=== PATIENT | female | born 1950 | race Caucasian/White ===

== ENCOUNTER 2019-05-11 11:25 | Inpatient (IN) | payer OTHER ==
[~2019-05-11] VITALS: Ht 157.5 cm; Wt 46.1 kg
[~2019-05-11 11:25] MED LIST: ABILIFY10 MG PO; ABREVA2 GM TP; ARICEPT; CALCIUM 500 +1 EAC5 PO; DICLOFENAC SODI25 MG PO; HYDROCODONE-AP1 EAC6 PO; INDOMETHACIN 2525 MG PO; NABUMETONE 750750 M1 PO; PAXIL; PAXIL10 MG PO; PHENERGAN 25 MG25 M1 PO; TRAMADOL 50 MG50 MG PO; TRAZODONE HCL50 MG PO; VYVANSE70 MG; VYVANSE70 MG PO; XANAX1 MG PO; ZOCOR
[2019-05-11 11:30] VITALS: BP 127/59
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
[2019-05-11 14:42] LABS: TSH 0.134 uIU/mL (0.358-3.740)
[2019-05-11 19:30] VITALS: BP 141/73
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
--- NOTE | 2019-05-12 05:59 | NUR ---
SLEPT 7.4 HOURS
[2019-05-12 07:08] LABS: HIV ANTIBODY Non Reactive (Non Reactive)
[2019-05-12 08:42] VITALS: BP 149/69
[2019-05-12 09:14] VITALS: BP 149/69
--- NOTE | 2019-05-12 12:09 | NUR ---
0645 RESUMMED CARE FROM OVERNIGHT SHIFT, PATIENT IN BED NOT WANTING TO GET UP DUE TO HEADACHE. PATIENT ATE BREAKFAST AND TOOK MEDICATION WITHOUT INCIDENCE. PATIENT NOT HAVE ANY GOALS SET FOR HERSELF TODAY, PATIENT DID GO TO GROUP AND WAS ENCOURAGE TO PARTICIPATE. PATIENT'S AFFECT IS FLAT, QUIET COOPERATIVE WILL CONTINUE TO MONITOR PATIENT
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
[2019-05-12 19:15] VITALS: BP 126/80
[2019-05-12 20:09] LABS: SYPHILIS AB Non Reactive (Non Reactive)
--- NOTE | 2019-05-13 01:28 | NUR ---
ASSUMED CARE OF THIS PATIENT AT [address] [employer]. SHE HAS BEEN IN ROOM THE ENTIRE SHIFT. COOPERATIVE WITH ASSESSMENT AND MEDS. HAS REQUESTED NO PRN'S THIS SHIFT.AFFECT BLUNTED, MOOD DEPRESSED. NO C/O. NO APPARENT DISTRESS. WILL CONTINUE TO MONITOR
[2019-05-13 07:12] VITALS: BP 144/87
[2019-05-13 07:34] LABS: HEMATOCRIT 47.7 % (37.0-47.0); HEMOGLOBIN 15.8 gm/dL (12.0-15.0); MCHC 33.1 g/dL (28.0-37.0); MCV 90.5 fL (80.0-100.0); PLATELET COUNT 413 thou/uL (150-400); RBC 5.27 mil/uL (4.20-5.00); RDW 14.7 % (10.5-14.5); WBC 6.9 thou/uL (4.0-11.0)
[2019-05-13 07:55] LABS: ALBUMIN 3.7 g/dL (3.4-5.0); CALCIUM 11.1 mg/dL (8.5-10.1); CREATININE 0.8 mg/dL (0.6-1.0); MAGNESIUM 1.8 mg/dL (1.8-2.4); PHOSPHORUS 4.7 mg/dL (2.5-4.9); POTASSIUM 4.1 mmol/L (3.5-5.1); TOTAL BILIRUBIN 0.3 mg/dL (<0.1-1.0)
[2019-05-13 08:08] LABS: FOLIC ACID 18.7 ng/mL (8.6-58.9); TSH 0.13 uIU/mL (0.358-3.740)
--- NOTE | 2019-05-13 10:33 | NUR ---
Lying supine in recliner without s/o distress. Rolled back to room for assessment. Awakens easily but unable to answer questions. No speech or actions suggestive of SI/HI. No response to orientation questions but does ask to urinate and agrees to walk to dining room. Calm and compliant with meds. Ate about 25% of breakfast independently. Breath sounds clear t/o, bilaterally equal. Irregular HR auscultated and irregular radial pulse. Color pink with brisk capillary refill and palpable peripheral pulses. Trace amount edema in lower extremities. Concentrated yellow urine per toilet X 2 voids this AM. Active bowel sounds over soft, flat abdomen. Up ambulating with steady gait with very little vocalizations. Laid down in bed to rest about 1030 without s/o distress.
[2019-05-13 11:14] LABS: ABSOLUTE NEUTROPHILS 3.3 thou/uL (1.4-8.2); PLATELET ESTIMATE NORMAL
--- NOTE | 2019-05-13 13:37 | NUR ---
0745 Lying supine in bed without s/o distress. Alert and orientated X4. Denies SI/HI. Reluctantly cooperative with assessment. States she is tired and wants to sleep. Breath sounds clear t/o, bilaterally equal. Reg HR auscultated. Color pink with brisk capillary refill and palpable peripheral pulses. Independent with voiding. Active bowel sounds over soft, flat abdomen. Ambulates to day room with regular, steady gait. 0930 Ate breakfast and then went back to bed. States she has a headache, 4-5/10. Took Tylenol and AM meds without difficulty. No s/o distress. 1100 States PAUL decreased, now a 1-2/10. In day room with peers without s/o distress. 1345 Dr. Tolbert here assessing pt. 22 g jelco placed per L wrist per order, NS hung and infusing at 250cc/hr d/t elevated Calcium. Pt. now sleeping in recliner without s/o distress.
--- NOTE | 2019-05-13 13:44 | EKG ---
[facility] [place] [address] ELECTROCARDIOGRAM REPORT Name: MICHELLE KENNEDY Room #: [facility] ADM IN M.R.#: [id number] Admission: 05/11/19 Attend Phys: Castillo Mata DO Discharge: Date of : 46 Report #: [id number] THIS REPORT FOR: cc: FAM - No family physician/PCP FAM - No family physician/PCP Markus Alfred MD ~ THIS REPORT FOR: //name// [facility] Test Date: 2019-05-13 Test Time: 08:59:11 Pat Name: MICHELLE KENNEDY Department: Room: [facility] Gender: F Quality Control Engineer: Kita TRINIDAD : 1950 Requested By: Yoly Merrill Order Number: [id number] MD: Markus Alfred Measurements Intervals Albers Rate: 81 P: 64 AK: 134 QRS: 18 QRSD: 102 T: 39 QT: 378 QTc: 439 Interpretive Statements Sinus rhythm Probable left atrial enlargement No previous ECG available for comparison Electronically Signed On 05-13-2019 13:43:27 TITLE I ASSISTANT by Markus Alfred [email or web address] <ELECTRONICALLY SIGNED> By: Markus Alfred MD 05/13/19 1343 [id number] Markus Alfred MD /EPI
[2019-05-13 19:35] LABS: CALCIUM 9.8 mg/dL (8.5-10.1)
[2019-05-13 21:01] VITALS: BP 142/77
--- NOTE | 2019-05-14 04:18 | NUR ---
Assumed care of pt @ 1900. Pt calm et cooperative with pleasant misdemeanor this shift. Took medications whole without difficulty. Ambulates the halls ad sandeep with steady gait. VSWNL. Health assessment with no abnormalities at present time. Socialized with peers in dayroom this evening. Pt denies SI/HI at present time. Currently resting in bed with eyes closed. Will continue to monitor per protocol.
[2019-05-14 07:03] LABS: CALCIUM 9.3 mg/dL (8.5-10.1); CREATININE 0.8 mg/dL (0.6-1.0); MAGNESIUM 1.6 mg/dL (1.8-2.4); PHOSPHORUS 3.8 mg/dL (2.5-4.9); POTASSIUM 3.9 mmol/L (3.5-5.1)
[2019-05-14 07:35] VITALS: BP 121/61
[2019-05-14 10:34] VITALS: BP 121/61
[2019-05-14 12:10] VITALS: BP 121/64
--- NOTE | 2019-05-14 14:05 | NUR ---
1405 RESUMMED CARE FROM OVERNIGHT SHIFT THIS AM, PATIENT IN DAY ROOM TALKING WITH OTHER PATIENTS. PATIENT ATE BREAKFAST TOOK HER MEDICATION WITHOUT INCIDENCE. PATIENT TOOK A SHOWER AND PARTICPATED IN GROUPS, PATIENT DENIES ANY SI/HI OR AH AT PRESENT. PATIENT WAS ANXIOUS THIS MORNING CALLING DAUGHTER ABOUT HER MISSING EYE GLASSES. PATIENT COOPERATIVE AND REDIRECTABLE, WILL CONTINUEE TO MONITOR PATIENT FOR SAFETY AND BEHAVIORS.
--- NOTE | 2019-05-14 17:27 | NUR ---
1500 Ambulated to room with steady gait, no s/o distress. Alert and orientated to person. States she is in [facility] when asked for location. Disorientated to time and situation. Denies SI/HI. States she feels much better than yesterday. Breath sounds clear t/o, bilaterally equal. Reg HR auscultated. Color pink with brisk capillary refill and palpable peripheral pulses +1/+4. Voiding independently. Active bowel sounds over soft, flat abdomen. 0.5cm white plaque noted in L posterior throat with erythema over throat. When asked she stated it was slightly painful and then requested her toenails be clipped. Sample Shoe Inspector And Reworker here assessing pt. When finished clipping toenails she stated that her R knee was hurting 4-5/10 and stated that it started prior to admission. Tylenol given which resolved pain. Currently sitting in day room eating dinner with peers and requesting ice cream for desert.
[2019-05-14 20:16] VITALS: BP 128/74
--- NOTE | 2019-05-15 05:20 | NUR ---
ASSUMED CARE OF THIS PATIENT AT 1900 FOR SKIN WASHER. SPENT MUCH OF THE EVENING INTERACTING WITH PEERS. DISORIENTED TO TIME AND SITUATION. PLEASANT AND COOPERATIVE WITH ASSESSMENT PROCESS AND MEDICATIONS. NO APPARENT DISTRESS. NO C/O. WILL CONTINUE TO MONITOR
--- NOTE | 2019-05-15 07:24 | NUR ---
Nutrition: Received consult for malnutrition. Pt recently assessed on 05/12, prior to the weekend. RD provided nutrition education on tips to support healthy need for weight gain and multiple nutrition interventions added. Pt has been eating extremely well. Calculated meal average = 85% per last 11 recorded meals. Eating 100% of 1-2 daily snacks as well, plus 50-100% of daily Ensure Enlive supplements which adds 350 kcals, 20 g protein/day. Energy dense source of kcals with peanut butter added to daily breakfast as well. Provider notes state significant malnutrition, RD would likely agree if pt found to have severe muscle/fat wasting. Current interventions working well. Next RD f/up planned again midweek on 05/17 w/ RD presence at [facility] team meeting.
[2019-05-15 08:43] VITALS: BP 93/66
[2019-05-15 11:10] LABS: THYROID PEROXIDASE AB 8 IU/mL (0-34)
--- NOTE | 2019-05-15 12:12 | HC ---
[facility] [place] [address] CONSULTATION Name: MICHELLE KENNEDY Room #: 520B-B ADM IN M.R.#: [id number] Admission: 05/11/19 Attend Phys: Castillo Mata, Discharge: Date of : 46 Report #: [id number] THIS REPORT FOR: cc: LESLIE - Ele family physician/PCP LESLIE - Ele family physician/PCP Em Merlos MD ~ CC: Castillo Mata [facility] physician/PCP DATE OF SERVICE: 05/14/2019 ENDOCRINE CONSULTATION NOTE CONSULTING PHYSICIAN: Dr. Tolbert. REASON FOR CONSULTATION: Hyperthyroidism, hypercalcemia. HISTORY OF PRESENT ILLNESS: This is a 68-year-old female patient whose medical background is noted for depression, substance abuse and anxiety in addition to COPD and GERD. The patient was admitted a few days ago out of concern over being a danger to herself and having expressed some suicidal ideation. Shortly after her presentation, the patient was evaluated with laboratory testing that revealed evidence of hypercalcemia as well as thyroid function abnormalities. When questioned further, the patient explained that she had been found to have thyroid abnormalities for several years and that she has been on active therapy at some point, but not in years. Unfortunately, she was unable to recall details about this medical history and was unable to recall the name of the medicine she was on, but whatever that was she has not been on it for a few years at least. Lately, she has felt increasingly fatigued, tired, depressed, and has lost 20 pounds in conjunction with poor appetite. She does not have major difficulties with palpitations, tremors, heat intolerance, sweating, frequent bowel movements or major skin or hair changes. She has not appreciated anterior neck fullness, discomfort, or compressive symptoms. She does not believe that she had ever undergone a thyroid surgery or radioactive iodine treatment. The patient does not recall having been told in the past that she had a calcium disorder and has not had difficulties with kidney stones, vertebral or hip fractures, pancreatitis, but she certainly has been dealing with worsening depression and difficulties maintaining mental clarity and focus. REVIEW OF SYSTEMS: CONSTITUTIONAL: Fatigue, tiredness, weight loss, poor appetite. No fever or chills. HEENT: Negative for sore throat, sinus pain, sinus congestion, ear drainage. PULMONARY: Occasional shortness of breath and cough and hemoptysis. [address] [address] CONSULTATION Name: MICHELLE KENNEDY Room #: 520B-B ADM IN M.R.#: [id number] Admission: 05/11/19 Attend Phys: Castillo Mata DO Discharge: Date of : 46 Report #: [id number] CARDIAC: Occasional lightheadedness, dizziness, but not leg edema, chest pain or palpitations. GASTROINTESTINAL: Noted for occasional abdominal discomfort and nausea, but not vomiting. NEUROLOGY: Negative for loss of consciousness, headaches or seizure activity. SKIN: Negative for rash, ulcers, discoloration or other major abnormalities. PSYCHIATRIC: Noted for mention of suicidal ideation, depression, poor focus. Otherwise, review of systems noncontributory other than those mentioned in HPI. PAST MEDICAL HISTORY: Noted for GERD, polysubstance abuse, osteoarthritis, history of pulmonary nodules, COPD, thyroid dysfunction. OUTPATIENT MEDICATIONS: As of late none. ALLERGIES: SULFA. FAMILY HISTORY: Noncontributory. SOCIAL HISTORY: The patient smokes half pack per day. Denies use of alcohol. Uses methamphetamine occasionally. PHYSICAL EXAMINATION: GENERAL: female patient who is not in apparent pain or distress. She appears cachectic. VITAL SIGNS: Blood pressure is 121/64 mmHg, heart rate is 62 beats per minute, respirations 17 per minute, temperature 36.2 degrees. CONSTITUTIONAL: The patient appears cachectic. She does not appear to be in pain or distress. HEENT: Anicteric sclerae. Intact extraocular motions. NECK: Supple, without JVD, carotid bruits or lymphadenopathy. I do not appreciate thyromegaly. CHEST: Noted for moderate air entry with scattered rales and rhonchi. HEART: Regular rate and rhythm without murmurs or gallops. ABDOMEN: Soft and lax without tenderness or organomegaly. She has active bowel sounds. EXTREMITIES: Lower extremity exam is negative for ankle edema. The patient has good pedal pulses bilaterally. NEUROLOGIC: Awake, alert and oriented to time, place and person. The remainder of her examination was largely nonfocal. PSYCH: The patient was pleasant and appropriate and answers my questions in full and was cooperative with an apparent normal mood and affect. LABORATORY RESULTS: Sodium 138, potassium 3.9, chloride 102, CO2 of 31, anion gap 5, BUN 26, creatinine 0.8, glucose 100, AST 11, total bilirubin 0.3, calcium 9.3. It was 11.1 and after hydration, went down to 9.8 on the same day yesterday and today is at 9.3, phosphorus 3.8, magnesium 1.6, alkaline [facility] [address] [place] [address] CONSULTATION Name: MICHELLE KENNEDY Room #: 520B-B ADM IN M.R.#: [id number] Admission: 05/11/19 Attend Phys: Castillo Mata DO Discharge: Date of : 46 Report #: [id number] phosphatase 90, ALT 20, total protein 7, albumin 3.7, EGFR 71. Free T4 0.8. White blood count 6.9, hemoglobin 15.8, hematocrit 47.7, platelets 413. Total T3 is low at 63. TSH is 0.13, repeated at 0.13, repeated at 0.092. ASSESSMENT AND PLAN: 1. Hyperthyroidism. With the multiple documentations of significantly suppressed TSH, a valid concern over hyperthyroidism has been raised. The patient's outlook from the clinical perspective is not consistent with hyperthyroidism. Furthermore, she gives a vague history of thyroid dysfunction that extended over several years and she quite possibly could be hypothyroid. Her free T4 and total T3 are both pretty low, which further supports the notion of hypothyroidism. To be on the safe side, I will obtain TPO antibody levels as well as a thyroid stimulating immunoglobulins to have a better understanding of her thyroid background. If the current outlook remains, then this would be consistent with hypothyroidism with superimposed sick euthyroid syndrome or central hypothyroidism. In either case, the patient might benefit at least short term from low-dose levothyroxine, hormone replacement. 2. Hypercalcemia. The patient had a documentation of significant hypercalcemia at 11.1 mg/dL. However, this was short lived and has readily responded to hydration with a quick normalization. This favors that this must have been due to dehydration. However, in order to effectively ensure the patient's best interest, I will investigate this further with ionized calcium, parathyroid hormone level, and vitamin D levels. Further workup and management will be based on these results. I certainly appreciate this consultation by Dr. Tolbert. <ELECTRONICALLY SIGNED> By: Em Merlos MD 05/15/19 1212 [id number] Em Merlos MD /nt
--- NOTE | 2019-05-15 13:26 | NUR ---
CATRACHITO contacted the [place] [employer] department in hopes of speaking with Officer Abraham Guzman. CATRACHITO was told that this officer is not on duty today, but was given his email address of [email or web address]. CATRACHITO emailed officer asking for a call. [facility] team will continue to follow pt during her stay on this unit.
[2019-05-15 16:10] LABS: CALCIUM IONIZED* 5.5 mg/dL (4.5-5.6)
[2019-05-15 17:52] LABS: CREATININE 0.7 mg/dL (0.6-1.0); PHOSPHORUS 3.3 mg/dL (2.5-4.9)
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
--- NOTE | 2019-05-15 18:22 | NUR ---
PATIENT IN ROOM AMBULATING. PATIENT DENIES NEEDS AT THIS TIME. MEDICATION TAKEN WITHOUT DIFFICULTY. WILL CONTINUE TO MONITOR.
[2019-05-15 19:30] VITALS: BP 122/72
--- NOTE | 2019-05-16 05:01 | NUR ---
Assumed care of pt @ 1900. Pt calm, cooperative, et pleasant this shift. Ambulates halls ad sandeep with steady gait. Took medications whole without difficulty. Was given Zyprexa PRN for agitation et inability to fall asleep earlier in shift. VSWNL. Health assessment with no abnormalities noted at present time. Socialized with peers in dayroom until lights out. Denies SI/HI at present time. Currently resting in bed with eyes closed. Will continue to monitor per protocol.
[2019-05-16 06:09] LABS: 25-HYDROXY TOTAL 22.4 ng/mL (30.0-100.0)
[2019-05-16 10:07] VITALS: BP 106/48
[2019-05-16 11:06] VITALS: BP 106/48
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
--- NOTE | 2019-05-16 13:04 | NUR ---
PATIENT WAS IN BED SLEEPING WHEN CARE ASSUMED. SHE WAS WOKEN UP BY STAFF FOR BREAKFAST. PATIENT TOOK ALL MEDICATION WHOLE WITHOUT DIFFICULTY. SHE AMBULATES WITH SLOW STEADY GAIT. PATIENT IS FORGETFUL, CONFUSED AT TIMES. PATIENT TOLD THIS RN THAT SHE IS "GOING HOME TODAY". BUT PATIENT IS NOT BEING DISCHARGED, AND THAT UPSETS HER. PATIENT DENIES SUICIDAL/HOMICIDAL IDEATION. SHE DENIES DEPRESSION "WHERE DID YOU GET THAT FROM". AFFECT IS FLAT, AND BLUNTED. BOOD IS DEPRESSED, AND SAD. PATIENT IS EATING MEALS, AND DRINKING FLUID WELL. NO AGITATION OR AGGRESSIVE BEHAVIOR NOTED, NO SIGN OF ACUTE DITRESS NOTED AT THIS TIME, WILL MONITOR FOR SAFETY.
[2019-05-16 19:42] VITALS: BP 120/76
[2019-05-17 00:10] VITALS: BP 120/76
--- NOTE | 2019-05-17 01:55 | NUR ---
1630 RESUMMED CARE FROM DAY SHIFT, PATIENT IN DAYROOM TALKING WITH OTHER PATIENTS. PATIENT AMBULATES WITH STEADY GAIT TOOK MEDICATION WITHOUT INCIDENCE. PATIENT DENIES SI/HI/AH/VH AT PRESENT, PLEASANT WHEN TALKING WITH PATIENT. PATIENT WANTS TO GO HOME SOON WILL CONTINUE TO MONITOR PATIENT FOR BEHAVIORS AND SAFETY.
[2019-05-17 06:07] LABS: THYROID STIMULATING IG < 0.10 IU/L (0.00-0.55)
--- NOTE | 2019-05-17 07:30 | NUR ---
Assumed care of patient this am. Patient calm and cooperative. Patient smiling and in good spirits. Affect normal. Patient denies hi/si. Patient denies pain. Patient takes medications whole with fluids. Patient ambulates without assistance. Patients assessment shows clear breath sounds, active bowel sounds and s1 s2 heard with auscultation. We will continue to monitor.
[2019-05-17 07:40] VITALS: BP 146/70
[2019-05-17 08:00] VITALS: BP 146/70
--- NOTE | 2019-05-17 11:23 | NUR ---
Nutrition follow up: Following closely given lower weight. Pt was laying in bed sleeping at time of visit. Awoke briefly, not wanting to answer many questions. Unable to perform NFPE. Pt has gained +3.7# in 1 week. BMI now > 18.5 kg/m2. Per review of nursing notes, pt eating and drinking fluids very well. Averaging 91% of meals the last 2 days, even having 100% of 2 snacks yesterday. Pt admits to high appetite/meal intakes. Denies needing menu modifications. Even drinking 100% of Ensure the last 2 days (1 daily). Given adequate energy intake and recent weight gain, unable to verify if meeting malnutrition criteria without NFPE. Per [facility] team meeting, pt to discharge in 2 days on 05/19. Change to low nutrition risk with successful PO/supplement use.
[2019-05-17 19:39] VITALS: BP 119/58
[2019-05-17 22:43] VITALS: BP 119/58
--- NOTE | 2019-05-18 00:18 | NUR ---
1927 RESUMMED CARE FROM DAY SHIFT, PATIENT IN DAY ROOM TALKING WITH OTHER PATIENT'S. PATIENT COOPERATIVE, CALM, ATE SNACK TOOK MEDICATION WITHOUT INCIDENCE. PATIENT DENIES ANY SI/HI/AH/VH OR DEPRESSION AT PRESENT, PATIENT STATES SHE IS READY TO GO HOME. PATIENT WENT TO BED AND SLEPT FOR ABOUT AN HOUR THEN CAME TO NURSES AREA TO ASK FOR SLEEPING MEDICATION. I TOLD PATIENT SHE RECEIVED HER TRAZADONE WHEN I GAVE HER HER HS MEDICATION, I TOLD PATIENT TO TRY TO LAY BACK DOWN AND GO TO SLEEP. PATIENT'S LUNG CLEAR, BOWEL SOUNDS PRESENT DENIES PAIN. PATIENT IS SLEEPING SOUNDLY WILL CONTINUE TO MONITOR PATIENT FOR SAFETY AND BEHAVIORS.
[2019-05-18 00:40] LABS: AMP/METHAMP Negative (Negative); BARBITURATES Negative (Negative); BENZODIAZEPINES Negative (Negative); COCAINE Negative (Negative); METHADONE Negative (Negative); OPIATES Negative (Negative); PCP Negative (Negative)
[2019-05-18 09:09] VITALS: BP 116/56
[2019-05-18] MEDS ORDERED: NICOTINE TRANSD21 M1 TRANSDERM (12:41)
[2019-05-18] MEDS ORDERED: AUGMENTIN 500-1 EACH PO (12:42)
[2019-05-18] MEDS ORDERED: TRAZODONE HCL50 MG PO (12:48)
[2019-05-18] MEDS ORDERED: ABILIFY10 MG PO (12:49)
[2019-05-18] MEDS ORDERED: PEPCID20 MG PO (12:50)
[2019-05-18] MEDS ORDERED: VITAMIN D325 MCG PO (12:51)
[2019-05-18] MEDS ORDERED: SYNTHROID25 MC1 PO (12:51)
[2019-05-18] MEDS ORDERED: MAGOX 400400 MG PO (12:53)
--- NOTE | 2019-05-18 14:11 | NUR ---
FULL RANGE AFFECT OBSERVED DURING 1;1 INTERACTION WITH THIS RN CONVERSATION ORGANIZED AND GOAL DIRECTED. DENIES SI/SH/HI. DENIES ACUTE ANXIETY OR FEELING DEPRESSED. "JUST BECAUSE I'M HERE" DESCRIBES MOOD "WORN OUT" AND REPORTS POOR SLEEP LAST PM-"I JUST COULDN'T SLEEP" GAIT STEADY WITHOUT ASSISTIVE DEVICES. REPORTS FAIR APPETITE. NO PSYCHOSIS NOTED IN SUPERFICIAL CONVERSATION WITH THIS NURSE.
--- NOTE | 2019-05-18 16:17 | NUR ---
CALLED BY DR. BHARDWAJ WITH REQUEST TO VOUCH FOR 7 DAYS OF GENERIC ARIPIRIZOLE AND LEVOTHYROXINE PT HAS COMMUNICATED TO DR. BHARDWAJ SHE IS UNABLE TO GET THESE FOR HERSELF. NOTIFIED OUTPT PHARMACY CM VOUCHING MEDS. NOTIFIED [facility]. REQUESTED PHARMACY NOTIFY ME WITH AMOUNT.
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
[2019-05-18 17:04] VITALS: BP 116/56
--- NOTE | 2019-05-18 17:57 | NUR ---
REPORTING PAIN TO LEFT KNEE IS NOTED TO BE SLIGHTLY SWOLLEN AND PAINFUL TO TOUCH-PT HAD REMOVED NICOTINE PATCH FROM ARM AND PLACED ON KNEE STATING "I THOUGHT THAT WAS MY PAIN PATCH-ITS KIND OF HELPING" OFFERED TYLENOL BUT PT STATES "DOESN'T HELP" DR. POP CONTACTED AND O RECEIVED FOR NORCO5/325 1 TAB PO PRN FOR KNEE PAIN RATED A 8 ON 1-10 SCALE. PT ENCOURAGED TO ELEVATE AND OFFERED ICE PACK BUT DENIES AT THIS TIME. WILL MONITOR
[2019-05-18 19:36] VITALS: BP 125/75
[2019-05-18 21:41] VITALS: BP 125/75
--- NOTE | 2019-05-19 01:31 | NUR ---
Pt. sitting in day room at start of shift. Pt. ambulates on her own and has a slow but steady gait. Pt. c/o pain to right knee and at approx. 2030 ON 05/18 pt was medicated with [place] 5/325 (1) for a pain rating of 5/10. Pt. then went into her room and laid down on bed. Patient is resting quietly with eyes closed. Respirtions even and non-labored. NO s/s of distress noted.
[2019-05-19 09:23] VITALS: BP 130/71
[2019-05-19 09:33] VITALS: BP 116/56
--- NOTE | 2019-05-19 10:58 | NUR ---
DISCHARGE INSTRUCTIONS REVIEWED WITH PATIENT INCLUDING DC MEDS,RX AND FOLLOW UP APPOINTMENTS. PROVIDED WITH 1 WEEK RX ABILIFY AND LEVOTHYROID PER OP PHARMACY AND TO FOLLOW UP WITH [facility] AND PCP NEXT WEEK-RX CALLED TO [facility] PER DR. BHARDWAJ. PT STATES UNDERSTANDING OF DISCHARGE INSTRUCTIONS-DENIES QUESTIONS OR CONCERNS. BRIGHT AFFECT AT TIME OF DC-NO NOTED OR REPORTED PSYCHOSIS,PARANOIA. DOES REPORT MILD ANXIETY AT TIME OF DC BUT STATES "I FEEL A LOT BETTER AND I'M READY TO GO" DENIES SI/SH/HI AT TOME OF DC. LEFT UNITAMBULATORY ACCOMPNIED BY NURSING STAFF AND SISTER TO SISTER PRIVATE VEHICLE. BELONGINGS SENT.
== END 2019-05-19 11:00 | disposition home or self-care (01) | DRG 885 ==
LOC: SBH 11:25
PROVIDERS: Internal Medicine; Psychiatry & Neurology Psychiatry; ADMIT Psychiatry & Neurology Psychiatry
DX: F29 Unspecified psychosis not due to a substance or known physiological condition (principal); R45.851 Suicidal ideations; E46 Unspecified protein-calorie malnutrition; Z68.1 Body mass index [BMI] 19.9 or less, adult; F39 Unspecified mood [affective] disorder; E03.9 Hypothyroidism, unspecified; E05.90 Thyrotoxicosis, unspecified without thyrotoxic crisis or storm; K21.9 Gastro-esophageal reflux disease without esophagitis; F32.9 Major depressive disorder, single episode, unspecified; F19.11 Other psychoactive substance abuse, in remission; M19.90 Unspecified osteoarthritis, unspecified site; J44.9 Chronic obstructive pulmonary disease, unspecified; F17.210 Nicotine dependence, cigarettes, uncomplicated; J02.9 Acute pharyngitis, unspecified; E55.9 Vitamin D deficiency, unspecified; F15.10 Other stimulant abuse, uncomplicated; R91.1 Solitary pulmonary nodule; Z79.899 Other long term (current) drug therapy; Z88.2 Allergy status to sulfonamides
CPT/HCPCS: 10880

== ENCOUNTER 2019-05-24 13:57 | Inpatient (IN) | payer OTHER ==
[~2019-05-24] VITALS: Ht 157.5 cm; Wt 49.6 kg
[~2019-05-24 13:57] MED LIST changes: +AUGMENTIN 500-1 EACH PO; +MAGOX 400400 MG PO; +NICOTINE TRANSD21 M1 TRANSDERM; +PEPCID20 MG PO; +SYNTHROID25 MC1 PO; +VITAMIN D325 MCG PO
[2019-05-24 14:36] VITALS: BP 166/86
[2019-05-24 15:08] LABS: URINE BILIRUBIN NEGATIVE (Negative); URINE BLOOD NEGATIVE (Negative); URINE CLARITY CLEAR; URINE COLOR YELLOW; URINE GLUCOSE-RANDOM* NEGATIVE (Negative); URINE KETONES NEGATIVE (Negative); URINE NITRITE-REFLEX NEGATIVE (Negative); URINE PROTEIN (DIPSTICK) NEGATIVE (Negative); URINE SPECIFIC GRAVITY 1.015 (1.005-1.035); URINE UROBILINOGEN 0.2 E.U./dl (0.2-1.0)
[2019-05-24 15:14] LABS: URINE LEUKOCYTES-REFLEX 1+ (Negative)
[2019-05-24 15:37] LABS: CASTS None Seen /LPF (None Seen); CRYSTALS None Seen /LPF (None Seen); SQUAMOUS 0-3 Few /LPF (0-3)
[2019-05-24 15:38] LABS: BACTERIA-REFLEX 1-9 Few /HPF (None Seen); URINE RBC None Seen /HPF (0-2); URINE WBC-REFLEX 0-5 Rare /HPF (0-5)
[2019-05-24 15:48] LABS: ABSOLUTE NEUTROPHILS 2.1 thou/uL (1.4-8.2); BASOPHILS 1.7 % (0.0-2.0); EOSINOPHILS 1.2 % (0.0-3.0); HEMATOCRIT 42.6 % (37.0-47.0); HEMOGLOBIN 14.1 gm/dL (12.0-15.0); LYMPHOCYTES 36.9 % (24.0-44.0); MCHC 33.1 g/dL (28.0-37.0); MCV 90.7 fL (80.0-100.0); PLATELET COUNT 393 thou/uL (150-400); POLYS 50.2 % (36.0-66.0); RDW 15.4 % (10.5-14.5); WBC 4.3 thou/uL (4.0-11.0)
[2019-05-24 15:55] LABS: CREATININE 0.7 mg/dL (0.6-1.0); POTASSIUM 3.8 mmol/L (3.5-5.1)
[2019-05-24 16:01] LABS: TOTAL BILIRUBIN 0.7 mg/dL (<0.1-1.0); TOTAL PROTEIN 6.8 g/dL (6.4-8.2)
[2019-05-24 16:52] LABS: AMP/METHAMP POSITIVE (Negative); BARBITURATES Negative (Negative); BENZODIAZEPINES Negative (Negative); COCAINE Negative (Negative); METHADONE Negative (Negative); OPIATES Negative (Negative); PCP Negative (Negative)
[2019-05-24 17:28] VITALS: BP 166/86
[2019-05-24 18:29] VITALS: BP 142/82
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
[2019-05-24 19:39] VITALS: BP 117/51
[2019-05-24 20:30] VITALS: BP 117/51
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
[2019-05-25 08:34] VITALS: BP 101/51
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
--- NOTE | 2019-05-25 15:57 | NUR ---
ASSUMED CARE AT 0700 THIS MORNING. SHE INITIALLY REFUSED TO GET OUT OF BED THIS MORNING. THIS EVP MANAGING DIRECTOR INSISTED SHE GET OUT OF BED AND ONTO THE UNIT FOR GROUPS. SHE COMPLAINED SHE WAS TIRED AND HER STOMACH WAS UPSET. SHE DID GET UP WITH MUCH PERSISTANCE AND CURSED ALL THE WAY TO THE DINING ROOM. SHE WAS YELLING, "GOD DAMN IT! I CAN'T GET ANY SLEEP HER EITHER!" DAMN IT!!! SHE WAS UP THE REMAINDER OF THE DAY. THIS AFTERNOON SHE C/O OF BEING EXTREMELY TIRED. HER VITAL SIGNS WERE TAKEN AND WERE STABLE. NO FEVERS. SHE WAS INFORMED TO REST IN BED BUT REFUSED TO STAY IN HER ROOM. SHE WAS ON THE UNIT THE REMAINDER OF THE AFTERNOON. DISCUSSED HER MEDICATIONS WITH DR. BHARDWAJ. SHE MADE CHANGES WHERE SHE WANTED THEM FOR THE PT. PT. TOOK HER MEDICATIONS WITHOUT PROBLEMS NOTED. SHE WAS PLEASANT WITH SEVERAL OTHER OF HER PEERS ON THE UNIT TODAY. DENIES SI/HI OR AVH TODAY. ATTENDED GROUPS.
[2019-05-25 20:00] VITALS: BP 111/41
[2019-05-25 22:04] VITALS: BP 111/41
--- NOTE | 2019-05-26 00:53 | NUR ---
PATIENT WAS C/O HEADACHE THIS EVENING AND REQUESTED TYLENOL 650MG WHICH WAS GIVEN WITH HER HS MEDS AT 2019. SHE APPEARS TIRED. SHE WENT TO BED AROUND 0 AND WAS BACK OUT OF HER ROOM AT 0 STATING SHE WAS STARVING. PATIENT HAD HAD SNACK EARLIER IN EVENING AND THEN WAS GIVEN CHERIOS WITH MILK AND ICE CREAM. PATIENT'S HEADACHE WAS RELIEVED WITH TYLENOL 650MG AND PATIENT WENT BACK TO BED AFTER EATING. PATIENT HAS BEEN CALM AND COOPERATIVE AND DID VISIT WITH HER 2 OTHER FEMALE PATIENT FRIENDS. PATIENT HAD BM TODAY. SHE IS ON ANTIBIOTICS FOR UTI. PATIENT IS SLEEPING IN HER BED AT THIS TIME. DENIES SI/HI/AVH. CONTINUING TO MONITOR FOR SAFETY.
--- NOTE | 2019-05-26 09:17 | EKG ---
[facility] [place] [address] ELECTROCARDIOGRAM REPORT Name: MICHELLE KENNEDY Room #: [facility] ADM IN M.R.#: [id number] Admission: 05/24/19 Attend Phys: Castillo Mata DO Discharge: Date of : 46 Report #: [id number] THIS REPORT FOR: cc: LESLIE - No family physician/PCP LESLIE - No family physician/PCP Michael Gillespie MD [facility] ~ THIS REPORT FOR: //name// [facility] ED Test Date: 2019-05-24 Test Time: 16:04:52 Pat Name: MICHELLE KENNEDY Department: Room: [facility] Gender: F Armhole Presser: JOAN : 1950 Requested By: Luis Brandt Order Number: [id number] MD: Michael Gillespie Measurements Intervals [place] Rate: 72 P: 47 AK: 146 QRS: -5 QRSD: 102 T: 22 QT: 396 QTc: 434 Interpretive Statements Sinus rhythm Poor R wave progression Compared to ECG 05/13/2019 08:59:11 No significant change was found Electronically Signed On 05-26-2019 9:16:51 [employer] by Michael Gillespie [email or web address] <ELECTRONICALLY SIGNED> By: Michael Gillespie MD, [facility] 05/26/19 0916 1604 [id number] Michael Gillespie MD, [facility] /EPI
[2019-05-26 09:27] VITALS: BP 124/46
--- NOTE | 2019-05-26 14:52 | NUR ---
PT ALERT AND ORIENTED TIMES FOUR, BRIGHT AFFECT. PT DENIES SI/HI/AH/VH. PT DENIES PAIN/SOA. PT UP INTERACTING WITH PEERS. PT ATTENDED AFTERNOON GROUPS. PT TOLERATES MEDS AND MEALS. PT WAITIMG ON [address]PC[address] COURT DATE. WILL CONTINUE TO MONITOR.
--- NOTE | 2019-05-26 16:23 | NUR ---
Duane spoke with Rishi Guzman and he offered his support if needed.
--- NOTE | 2019-05-26 17:01 | NUR ---
PT ALERT AND ORIENTED TIMES FOUR, WITH BRIGHT AFFECT. PT DISCHARGE FOCUSED FOR SOME PART OF THE SHIFT. VSS, PT DENIES SI/HI/AH/VH. PT UP AND OUT AROUND THE UNIT INTERACTING WITH PEERS. PT ATTENDED SOME GROUPS. PT TOLERATES MEDS AND MEALS. UP WITH STEADY GAIT. PT PROGRESSING TOWARDS POC GOALS.
[2019-05-26 21:29] VITALS: BP 118/78
--- NOTE | 2019-05-27 04:12 | NUR ---
Assumed care of pt @ 1900. Pt calm et cooperative with pleasant demeanor this shift. Took medications whole without difficulty. Socialized with staff et peers in dayroom until HS. Ambulates the halls ad sandeep with steady gait. No behaviors noted this shift. VSWNL. Health assessment with no abnormalities noted at present time. Currently resting in bed with eyes closed. Will continue to monitor per protocol.
[2019-05-27 09:06] VITALS: BP 129/86
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
[2019-05-27 19:26] VITALS: BP 119/59
--- NOTE | 2019-05-27 21:22 | NUR ---
Assumed care of pt @ 1900. Pt calm et cooperative with pleasant demeanor. Socialized with staff et peers in dayroom until HS. Took medications whole without difficulty. Given tramadol 50mg PRN for bilateral knee pain. Pt states that R knee hurts more than L at present time. VSWNL. Health assessment with no abnormalities noted other than previously reported. Ambulates the halls ad sandeep with steady gait. No behaviors noted. Denies SI/HI at present time. Currently resting in bed with eyes closed. Will continue to monitor per protocol.
[2019-05-28 06:24] VITALS: BP 121/63
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
[2019-05-28 19:38] VITALS: BP 115/73
--- NOTE | 2019-05-29 03:06 | NUR ---
Assumed care of pt @ 1900. Pt calm, cooperative with pleasant demeanor. Took medications whole without difficulty. Was given PRN Tramadol et Trazodone this shift for pain in bilat. knees et insomnia. Ambulates the halls ad sandeep with steady gait. Socialized with staff et peers in dayroom until HS. Denies SI/HI at present time. VSWNL. Health assessment with no abnormalities noted at present time. Currently resting in bed with eyes closed. Will continue to monitor per protocol.
[2019-05-29 07:53] VITALS: BP 122/67
[2019-05-29 08:00] VITALS: BP 122/67
--- NOTE | 2019-05-29 08:55 | NUR ---
ASSUMED PT CARE REPORT RECEIVED FROM NURSE PT IS AOX4, ON RA. NO RESPIRATORY ISSUE DETECTED. VSS. AM MEDICINE ADMINITERED ORDERED. SEE EMAR. PT IS AMBULATORY AND CONTINENT. ATE BREAKFAST WITH OTHERS IN SOCIAL ROOM. DENIES PAIN IN HER KNEES AT TIME OF ASSESSMENT. WILL CONTINUE TO MONITOR FOR PAIN. WILL CONTINUE TO MONITOR
--- NOTE | 2019-05-29 08:58 | NUR ---
Sw completed chart review and pt seems to be compliant with treatment. Pt is pending a psych eval and while she doesnt feel safe at home she wants to d/c home.
[2019-05-29] MEDS ORDERED: KEFLEX500 M1 PO (09:42)
[2019-05-29] MEDS ORDERED: TRAZODONE HCL100 MG PO (09:43)
[2019-05-29] MEDS ORDERED: ABILIFY 5 MG TAB5 M1 PO (09:43)
[2019-05-29] MEDS ORDERED: PEPCID20 MG PO (09:43)
[2019-05-29] MEDS ORDERED: SYNTHROID25 MC1 PO (09:44)
--- NOTE | 2019-05-29 15:01 | NUR ---
CATRACHITO met with pt and she stated she was ready to go home. She is going to stay with her son george [phone] unitl she can find her own housing. Pt stated that her car is at her father's house and would need a taxi there. CATRACHITO also contacted [facility] and pt has appt 07/12/[address] Jenkins at the main office and is [facility] and will go there on Wednesday for an intake for case management services.
--- NOTE | 2019-05-29 17:43 | NUR ---
pt then asked for pain medicine later in the am. tramadol given to pt. then muscle rub applied on right knee. pt has good appetite. ambulates well. keflex d/c per dr mireles. will continue to monitor pt.
[2019-05-29 20:15] VITALS: BP 125/70
--- NOTE | 2019-05-30 01:40 | NUR ---
VISIBLE IN DAYROOM VISITING WITH FEMALE PEERS UPON INITAL ASSESSMENT THIS PM. DENIES SI/SH/HI. NO NOTED OR REPORTED PSYCHOSIS-DENIES ACUTE ANXIETY ASND DESCRIBES MOOD "PRETTY GOOD-I HAD A PRESTTY GOOD DAY" RELAXED AND SMILING IN CONVERSATION WITH PEERS AND STAFF. DOES REPORT KNEE PAIN BILAT. SLIGHTLY WORSE ON RIGHT-IS NOTED TO HAVE MILD SWELLING TO RIGHT KNEE. REQUESTED AND RECEIVED ULTRAM 50MGPO PRN AT 2044 WITH HS MEDS-APPEARS TO BE RESTING QUIETLY IN ROOM UPON REASSESSMENT OF PAIN AT APPROX 2145. GAIT STEADY WITHOUT ASSITIVE DEVICES.
[2019-05-30 08:16] VITALS: BP 125/70
--- NOTE | 2019-05-30 08:20 | NUR ---
SW completed d/c instructions, made packet and left on chart. SW faxed d/c summary and orders to [facility] [phone]. Sw provided pt with handout for f/u at [facility]. CATRACHITO set up transporation with ADALGISA Johnson and provided nursing with voucher. silverware supervisor at 11Am. Pt is going home with family.
[2019-05-30] MEDS ORDERED: BENZTROPINE MES1 MG PO (08:33)
[2019-05-30 08:49] VITALS: BP 100/49
--- NOTE | 2019-05-30 10:02 | NUR ---
Up ambulating in unit without s/o distress. Calm and cooperative. Looking forward to discharge. When given nicotene patch she initially refused stating she had a couple of packs of cigarettes in her car. Then stated we could give patch to another pt. Accepted patch after encouragement. Alert and orientated X4. Denies SI/HI. Breath sounds clear t/o, bilaterally equal. Reg HR auscultated. Color pink with brisk capillary refill and palpable peripheral pulses. Independent with voiding. Active bowel sounds over soft, flat abdomen. States last BM was yesterday. Regular, steady gait. Plan on discharging at 1100 am today.
[2019-05-30 10:24] VITALS: BP 125/70
== END 2019-05-30 12:20 | disposition home or self-care (01) | DRG 897 ==
LOC: ER 13:57 → SBH 16:34 → EROBS 16:34 → SBH 18:02
PROVIDERS: Emergency Medicine; Physician Assistant; ADMIT Psychiatry & Neurology Psychiatry
DX: F15.159 Other stimulant abuse with stimulant-induced psychotic disorder, unspecified (principal); N39.0 Urinary tract infection, site not specified; R45.851 Suicidal ideations; F39 Unspecified mood [affective] disorder; K21.9 Gastro-esophageal reflux disease without esophagitis; J44.9 Chronic obstructive pulmonary disease, unspecified; F17.210 Nicotine dependence, cigarettes, uncomplicated; F22 Delusional disorders; E03.9 Hypothyroidism, unspecified; M17.0 Bilateral primary osteoarthritis of knee; Z72.89 Other problems related to lifestyle; Z79.899 Other long term (current) drug therapy; Z88.2 Allergy status to sulfonamides; Z79.51 Long term (current) use of inhaled steroids; Z28.21 Immunization not carried out because of patient refusal
CPT/HCPCS: 10880

== ENCOUNTER 2019-08-08 10:44 | Inpatient (IN) | payer OTHER ==
[~2019-08-08] VITALS: Ht 152.4 cm; Wt 53.1 kg
[~2019-08-08 10:44] MED LIST changes: +ABILIFY 5 MG TAB5 M1 PO; +BENZTROPINE MES1 MG PO; +KEFLEX500 M1 PO; +TRAZODONE HCL100 MG PO
[2019-08-08 10:45] VITALS: BP 195/80
[2019-08-08 11:25] LABS: ABSOLUTE NEUTROPHILS 5.5 thou/uL (1.4-8.2); BASOPHILS 0.1 % (0.0-2.0); EOSINOPHILS 0.6 % (0.0-3.0); HEMATOCRIT 44.9 % (37.0-47.0); LYMPHOCYTES 18.2 % (24.0-44.0); MCH 30.9 pg (26.0-34.0); MCHC 33.4 g/dL (28.0-37.0); MCV 92.4 fL (80.0-100.0); MONOCYTES 10.7 % (1.0-8.0); PLATELET COUNT 424 thou/uL (150-400); POLYS 70.4 % (36.0-66.0); RBC 4.86 mil/uL (4.20-5.00); RDW 14.1 % (10.5-14.5); WBC 7.7 thou/uL (4.0-11.0)
[2019-08-08 11:36] LABS: AMP/METHAMP POSITIVE (Negative); BARBITURATES Negative (Negative); BENZODIAZEPINES Negative (Negative); COCAINE Negative (Negative); METHADONE Negative (Negative); OPIATES POSITIVE (Negative); PCP Negative (Negative)
[2019-08-08 11:44] LABS: URINE BILIRUBIN NEGATIVE (Negative); URINE BLOOD NEGATIVE (Negative); URINE CLARITY CLEAR; URINE COLOR YELLOW; URINE GLUCOSE-RANDOM* NEGATIVE (Negative); URINE KETONES NEGATIVE (Negative); URINE LEUKOCYTES-REFLEX NEGATIVE (Negative); URINE NITRITE-REFLEX NEGATIVE (Negative); URINE PROTEIN (DIPSTICK) NEGATIVE (Negative); URINE SPECIFIC GRAVITY 1.015 (1.005-1.035); URINE UROBILINOGEN 0.2 E.U./dl (0.2-1.0)
[2019-08-08 11:45] LABS: ANION GAP 9 mmol/L (7-16); BUN 24 mg/dL (7-18); CHLORIDE 101 mmol/L (98-107); CO2 27 mmol/L (21-32); CREATININE 0.7 mg/dL (0.6-1.0); GLUCOSE 100 mg/dL (74-106); POTASSIUM 4.2 mmol/L (3.5-5.1); SODIUM 137 mmol/L (136-145)
[2019-08-08 11:49] LABS: ALBUMIN 4.1 g/dL (3.4-5.0); SALICYLATE < 2.8 mg/dL (2.8-20.0); SGOT 14 U/L (15-37); SGPT 25 U/L (30-65); TOTAL BILIRUBIN 0.7 mg/dL (<0.1-1.0); TOTAL PROTEIN 7.3 g/dL (6.4-8.2)
--- NOTE | 2019-08-08 12:25 | NUR ---
I was asked to assess Lesley to see if she would met criteria to be admitted on [facility]. Lesley was sedated. She responded by turning her head towards my voice when I called her name. She did open her eyes for a second or two, then closed them. I inquired as to why she is in the hospital. She stated "I don't know." I asked if she was suicidal. She shook her head no. The nurse caring for her informed that that a Saragent that is familiar with Lesley, brought her into the hospital. It was reported to me that Lesley was having paranoid delusions and agitation. She tested positive for meth. Lesley does have a history of drug use. I will consult Dr. Mata regarding this admission. Dr. Mata agreed to assess the patient. Once she is medically stable Lesley will be admitted to [facility].
--- NOTE | 2019-08-08 14:08 | NUR ---
ATTEMPTED TO CALL REPORT - WAS TOLD OMAR EDEN WOULD BE THE NURSE TAKING REPORT AND SHE WOULD CALL BACK IN 5MIN
[2019-08-08 14:19] VITALS: BP 142/76
[2019-08-08 14:30] VITALS: BP 141/71
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
--- NOTE | 2019-08-08 16:28 | NUR ---
CATRACHITO spoke with Officer Thomas who wrote an affidavit on pt's recent behavior. he said per usual pt for the past couple months has made random bizarre statements about people taking her money. However, he said lately her behaviors have increased and she has become more unpredicatable. For example, she has services at [facility] including case management but forgets her appointments and does not always show up. This has happened to the point where Officer Thomas had to take her to at least 1 psych appt because she forgot it. He said recently pt made SI statements to Elaine (her [facility] rn case manager hospice) and to Officer Thomas. CATRACHITO attempted to speak with pt. She was in her bed unresponsive. CATRACHITO contacted Elaine at [phone]. She said her and Officer Thomas are at a loss of how to help pt, but it is her belief, and her team's, that pt suffers from dementia. SW team will continue to follow pt during her stay on this unit.
[2019-08-08 19:49] VITALS: BP 120/75
--- NOTE | 2019-08-09 00:42 | NUR ---
Assumed care of patient this pm shift. Patient sleeping upon arrival. Patient woke up and signed consents. Patient is slightly irritable and states that she is hungry. RN got patient some cookies and chips. Patient took evening medications whole. Patient can ambulate without assistance. Patient denies pain. Patient denies hi/si. Patient is dressed in hospital attire. Patients assessment shows clear breath sounds, active bowel sounds, and s1 s2 heard with auscultation. Patient is continent of bowel and bladder. We will continue to monitor.
[2019-08-09 07:52] VITALS: BP 127/85
--- NOTE | 2019-08-09 08:06 | EKG ---
[facility] [place] [address] ELECTROCARDIOGRAM REPORT Name: MICHELLE KENNEDY Room #: 527A-A ADM IN M.R.#: [id number] Admission: 08/08/19 Attend Phys: Castillo Mata DO Discharge: Date of : 46 Report #: [id number] THIS REPORT FOR: cc: FAM - No family physician/PCP FAM - No family physician/PCP Markus Alfred MD ~ THIS REPORT FOR: //name// [facility] ED Test Date: 2019-08-08 Test Time: 11:23:58 Pat Name: MICHELLE KENNEDY Department: Room: [facility] Gender: F Health Science Writer: ANGELINA : 1950 Requested By: Daisha Murphy Order Number: [id number] MD: Markus Alfred Measurements Intervals [place] Rate: 62 P: 62 CT: 131 QRS: 11 QRSD: 104 T: 49 QT: 414 QTc: 421 Interpretive Statements Sinus rhythm Probable left atrial enlargement Left ventricular hypertrophy Baseline wander in lead(s) I,aVL Compared to ECG 05/24/2019 16:04:52 Left ventricular hypertrophy now present Poor R-wave progression no longer present Electronically Signed On 08-09-2019 8:04:13 CDT by Markus Alfred [email or web address] <ELECTRONICALLY SIGNED> By: Markus Alfred MD 08/09/19 [id number] Markus Alfred MD /EPI
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
[2019-08-09 14:03] VITALS: BP 127/85
[2019-08-09 19:33] VITALS: BP 146/71
[2019-08-09 20:43] VITALS: BP 146/71
--- NOTE | 2019-08-10 01:51 | NUR ---
Assumed care of patient this pm shift. Patient in fair spirits, slightly grumpy. Patient denies pain. Patient denies hi/si. Patients affect blunted. Patient takes medications whole. Patient continent of bowel and bladder. Patient ambulates without assistance. Patient dressed in hospital attire. Patients assessment shows clear breath sounds, active bowel sounds, and s1 s2 heard with auscultation. Patient did not state any goals or show any signs of aggression. We will continue to monitor.
[2019-08-10 07:39] VITALS: BP 147/88
--- NOTE | 2019-08-10 10:03 | NUR ---
CATRACHITO contacted both Officer Thomas and pt's registered nurse hh case manager Elaine and provided an update on pt. Both said they would update their teams. CATRACHITO will continue to follow pt during her stay on this unit.
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
[2019-08-10 19:42] VITALS: BP 118/71
--- NOTE | 2019-08-11 03:15 | NUR ---
Pt. rested quietly at intervals during the night when checked on during frequent rounds. She did display some paranoia and expressed that she was afraid. Reassurance given to the pt. that she was safe. No c/o pain. Co- operative with cares.
--- NOTE | 2019-08-11 03:19 | NUR ---
Pt. rested quietly at intervals during the night when checked on during frequent rounds. She offers no c/o pain. Cooperative with cares.
[2019-08-11 07:00] VITALS: BP 133/84
[2019-08-11 19:53] VITALS: BP 117/73
[2019-08-11 20:30] VITALS: BP 117/73
--- NOTE | 2019-08-11 22:26 | NUR ---
Assumed care of patient this pm shift. Patient appears sad. Patient states that she needs to get her federal funds in place so that she can get an apartment. Patient states that she does not want to go to a assisted. Patient is wearing hospital clothes, is calm and cooperative. Patient takes medications whole. Patient ambulates without assistance. Patients assessment shows clear breath sounds, active bowel sounds, and s1 s2 heard with auscultation. We will continue to monitor.
[2019-08-12 09:23] VITALS: BP 107/53
--- NOTE | 2019-08-12 11:20 | NUR ---
PATIENT HAS BEEN UP AND OUT ON THE UNIT, TOOK ALL MORNING MEDICATION WHOLE WITHOUT DIFFICULTY. PATIENT IS EATING MEALS, AND DRINKING FLUID FAIRLY WELL. PATIENT DENIES SUICIDAL/HOMICIDAL IDEATION. SHE DENIES DEPRESSION/ANXIETY. AFFECT IS FLAT, MOOD IS DEPRESSED. PATIENT AMBULATES WITH SLOW SLIGHTLY UNSTEADY GAIT. NO SIGN OF ACUTE DISTRESS NOTED AT THIS TIME, WILL MONITOR FOR SAFETY.
[2019-08-12 19:17] VITALS: BP 148/68
--- NOTE | 2019-08-13 01:54 | NUR ---
Assumed care of patient at change of shift. Pt.'s hair is messy and a comb is provided and encouraged to comb hair. Pt. is alert and oriented x 1 - 2 and confused to time and date. Pt. took meds whole with water. No choking or coughing noted after swallowing. Pt.'s last BM is 08/11. Pt. denies pain and no signs or symptoms of pain or distress noted.
[2019-08-13 07:47] VITALS: BP 127/54
--- NOTE | 2019-08-13 10:15 | NUR ---
PATIENT HAS BEEN UP, AND OUT ON THE UNIT, AMBULATES WITH SLOW STEADY GAIT. PATIENT TOOK ALL MEDICATION WHOLE WITHOUT DIFFICULTY. PATIENT IS EATING MEALS, AND DRINKING FLUID WELL. PATIENT DENIES SUCIDAL/HOMICIDAL IDEATION. SHE IS FOCUSED ON DISCHARGE "I WANT TO GO HOME". PATIENT NOTIFIED THAT SHE WILL BE DISCHARGED WHEN THE PHYSICIAN THINKS SHE IS WELL ENOUGH TO GO HOME. PATIENT DENIES DEPRESSION/ANXIETY "EVERYTHING IS FINE, AM DOING WELL". PATIENT DENIES HAVING PHYSICAL PAIN AT THIS TIME. MOOD IS DEPRESSED, AFFECT IS FLAT, AND BLUNTED. NO SIGN OF ACUTE DISTRESS NOTED, WILL MONITOR FOR SAFETY.
--- NOTE | 2019-08-13 16:45 | NUR ---
SW completed 1:1 with patient in lieu of group due to COVID-19 restrictions. Patient was pleasant and engaging. She talked about her children. She also talked about the inconvenience of their father's birthday being on March [birth year]. She discussed the origin of her last name.
[2019-08-13 19:53] VITALS: BP 94/67
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
--- NOTE | 2019-08-14 09:09 | NUR ---
PT AWAKE AND HAD BREAKFAST. PT STATED SHE HAS RT KNEE PAIN WITH BEARING WEIGHT OF 10 ON 1-10 SCALE. PT STATED SHE NEEDS TO HAVE SURGERY TO RT KNEE, PT HAD SURGERY TO LEFT KNEE ALREADY. PT ROCKING BACK IN FORTH IN CHAIR.
[2019-08-14 09:24] VITALS: BP 122/70
--- NOTE | 2019-08-14 12:44 | NUR ---
ADM IBUPROPHEN 600MG PO FOR PAIN TO RT KNEE OF 10 ON 1-10 SCALE.
--- NOTE | 2019-08-14 13:44 | NUR ---
PT STATED SHE STILL HAS SOME PAIN TO RT KNEE OF 8 ON 1-10 SCALE.
--- NOTE | 2019-08-14 13:54 | NUR ---
ADM JOSE ROJAS TO RT KNEE. PT CHANGED HER CLOTHES ALSO IN HER ROOM. PT WOULD LIKE TO HAVE HER BRA ALSO.
--- NOTE | 2019-08-14 16:28 | NUR ---
PT LIKES TO TAKE WALKS AFTER EATING. PT STATED SHE IS GOING TO START DRINKING ENSURE DRINKS TO HELP WITH WEIGHT GAIN.
--- NOTE | 2019-08-14 18:17 | NUR ---
CATRACHITO participated in conference with patient and Dr. Mata to discuss the results of patient's neuropsych exam and [place]. Patient was upset to hear she has dementia. She became further upset with Dr's recommendation for [facility], not safe to take care of her father and not safe for her to drive. Patient eventually acknowledged and inquired about possible placements. CATRACHITO discussed some options with her.
[2019-08-14 19:36] VITALS: BP 121/67
--- NOTE | 2019-08-15 01:29 | NUR ---
ASSUMED CARE ON 08/14/19 @ 19:15, IN THE DAY ROOM SITTING AT A TABLE WITH PEERS AND SPEAKING WITH PEERS, AND WATCHING TV. COOPERATED WITH ASSESSMENT, HRRR, LUNGS CTA, ABD NORMOACTIVE AND PT REPORTS BM X 2 WHICH WERE NORMAL. DENIES DEPRESSION. REPORTS MODERATE ANXIETY ABOUT WHERE SHE IS GOING WHEN SHE LEAVES THE HOSPITAL. REPORTS IS ONRY, BUT SWEET. TYLENOL 650 PROVIDED FOR 5/10 KNEE AND GENERAL PAIN. IN BED AT THIS TIME WITH EYES CLOSED, RESPIRATIONS EVEN AND UNLABORED. WILL CONTINUE TO MONITOR Q 12 MINUTES FOR PATIENT SAFETY.
[2019-08-15 07:52] VITALS: BP 144/84
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
[2019-08-15 19:44] VITALS: BP 132/78
--- NOTE | 2019-08-15 20:22 | NUR ---
Assumed care at change of shift. Patient was sitting in day room on cough with legs crossed and swinging/bouncing right lower leg. Pt. c/o pain to right knee that she rated 6/20. Ibuprofen 600 mg. po and Bengay rub was applied to right knee. Assessment was completed. She offered no complaints. She denied pain other than to right knee and was able to ambulate on it with a slow and steady get. Her affect is happy. She show no signs or symptoms of pain other than to right knee and no signs or symptoms of distress are noted. She denies any needs at this time.
[2019-08-16 00:44] VITALS: BP 132/78
--- NOTE | 2019-08-16 02:24 | NUR ---
Pt. remains resting quietly in bed with her eyes closed. Respirations are even and non-labored. NO signs or symptoms of pain or distress noted.
[2019-08-16 09:42] VITALS: BP 137/90
--- NOTE | 2019-08-16 11:04 | NUR ---
Assumed care 0700. DeniesSI/HI/AH/VH. Determined she will not go to assisted livingplace. Wants her own place. Does not want to be toldwhat to door when to do it. Rocking back and forth, says she is angry with what doctor told her son. Took showertoday.Keeps saying she wants to be free.At onepoint luis a would kill herself if she had to go to assisted living. Then later recanted it.
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
[2019-08-16 19:55] VITALS: BP 137/65
[2019-08-16 22:00] VITALS: BP 137/65
--- NOTE | 2019-08-16 23:52 | NUR ---
Assumed care of patient this pm shift. Patient in good spirits. Patient walking the halls for exercise. Patient denies pain. Patient denies hi/si. Patient takes medications whole. Patient ambulates with a steady gate. Patients assessment shows clear breath sounds, active bowel sounds, and s1 s2 heard with auscultation. Patient is continent of bowel and bladder. Patient did not display any negative or junk behaviors this evening. We will continue to monitor per nursing protocol.
[2019-08-17 07:57] VITALS: BP 98/66
--- NOTE | 2019-08-17 10:49 | NUR ---
CATRACHITO received a call from Yadira, pt's daughter in law, with questions concerning becoming pt's DPOA. CATRACHITO again provided education on the difference between DPOA and guardianship. She said that they were thinking [facility] and [facility] as options because they would be close to Juan.
--- NOTE | 2019-08-17 10:55 | NUR ---
Alert and orientated to person and time this AM but states she is at [facility] hospital. When asked why she is here, she stated, "I'm an addict." States she has not used in 3 months. Denies SI/HI. Sitting in day room watching TV and conversing with peers. Cooperative and compliant with meds. Requesting medication for knee pain, bilaterally mid morning, states it is an 8/10. Ibuprofen 600mg given and BenGay applied to knees. Breath sounds clear t/o. Reg HR auscultated. Color pink with brisk capillary refill and palpable peripheral pulses. No edema noted. Independent with voiding. Active bowel sounds over soft, flat abdomen. States she had BM yesterday.
--- NOTE | 2019-08-17 12:00 | NUR ---
THIS VARIOUS EXCEPTIONALITIES TEACHER WITNESSED THE PATIENT'S DESIRE FOR HER SON AND DAUGHTER IN LAW BEING HER DURABLE POWER OF ATTORNEYS. DOCUMENT WAS NOTARIZED AND ENTERED INTO NOTARY LOG ON THIS DATE. Emilio RENTERIA WITNESSED THIS AND WILL DISTRIBUTE DOCUMENT TO APPROPRIATE PLACES.
[2019-08-17 20:08] VITALS: BP 103/45
--- NOTE | 2019-08-18 02:21 | NUR ---
CARE OF PATIENT ASSUMED AT 1915. PATIENT IS IN HER ROOM. COOPERATIVE AND PLEASANT UPON APPROACH. DENIES SI/HI, DELUSIONS, AND HALLUCINATIONS. HEART, BOWEL, AND LUNG SOUNDS ALL NORMAL. PATIENT GOES INTO DAY ROOM AND WATCHES TV IMMEDIATELY AFTER ASSESSMENT. DID BECOME SOMEWHAT IRRITABLE WHEN TV WAS TURNED OFF AT 2030.
[2019-08-18 07:15] VITALS: BP 129/76
[2019-08-18 08:30] VITALS: BP 129/76
--- NOTE | 2019-08-18 08:41 | NUR ---
PT SITTING OUT IN DINING ROOM. PT STATED SHE STILL HAS PAIN TO RT KNEE OF 10 ON 1-10 SCALE. PT STATED SHE IS GETTING ANXIOUS TO LEAVE. PT STATED SHE HAS BEEN HERE FOR 2 WEEKS AND READY TO GO. PT ROCKS IN CHAIR AT TIMES. PT STATED SHE HAD A BM TODAY.
--- NOTE | 2019-08-18 08:55 | NUR ---
Late Note: 1530 I and another staff memeber were sitting in the day room. Lesley stated "I want to go home. I am so depressed." The other staff memeber asked Lesley what she did for fun. I asked "besides using drugs?" Lesley responded "I don't use drugs. That hurt my feelings." I apologized. Lelsey was not excepting my apology. She stated "That was offensive and the most hurtful thing anyone has ever said to me." I again apologized. Lesley stated "I don't want to talk to you." I said "I will respect your boundry." Lesley did not talk to me the rest of the day. Although, she sat close to where I was sitting. She kept looking in my direction the rest of the day.
--- NOTE | 2019-08-18 16:26 | NUR ---
PT SITTING IN DINING ROOM LISTENING TO MUSIC. ADM IBUPROPHEN 600MG PO FOR LOW AMOUNT OF PAIN TO RT KNEE OF 3 ON 1-10 SCALE.
--- NOTE | 2019-08-18 17:35 | NUR ---
PT HAS HAD A GOOD DAY. PT STATED SHE NEEDED VICODEN EARILER DUE TO NEEDING KNEE SURGERY. PT HAS STEADY GAIT, NO LIMP NOTED. PT TOLERATING GABAPENTIN AT THIS TIME, NO SIDE EFFECTS.
[2019-08-18 19:31] VITALS: BP 123/69
--- NOTE | 2019-08-18 23:26 | NUR ---
Care assumed of patient at 1915: Patient seated in the dayroom at start of shift. Interacting well with staff and peers. Alert and oriented to person and place. Disoriented on current situation and time. Patient provided cues and reminders. Forgetful. Patient calm, pleasant and cooperative. Denies SI/HI/AH/VH. Denies depression and anxiety. No s/s of delusional or paranoia behaviors. Primary concern was pain to her right knee. Reports that walking increases her pain. Patient reports that massage and PRN Tylenol was helpful. Patient took HS medication whole without difficulty. Education provided regarding the medication Neurontin. Patient appreciative. Patient ate 100% HS snack. Patient was able to retire to bed at a reasonable hour and has been resting quietly.
[2019-08-19 07:43] VITALS: BP 112/59
--- NOTE | 2019-08-19 15:51 | NUR ---
Up ambulating in unit without s/o distress. Alert and orientated X4. Initially denied SI/HI but then when expressing frustration about placement she stated, "I just wish I would ." Adamantly denied SI after statement. Compliant with meds and cares. Participating in groups, conversing with peers and staff. Breath sounds clear. Reg HR auscultated. Color pink with brisk capillary refill and palpable peripheral pulses. Slight amt edema in lower extremities. Independent with voiding. Active bowel sounds over soft, flat abdomen. Ibuprofen 600 mg given PO for R knee pain, also applied Kehinde Bloom. Pain slightly improved with medication. Regular steady gait. Requesting to shave legs and armpits, did so under direct supervision.
[2019-08-19 19:39] VITALS: BP 139/74
--- NOTE | 2019-08-19 19:57 | NUR ---
Care assumed of patient at 1915: Patient seated in dayroom, watching movie with peers at start of shift. Alert and oriented x4. Good insight, good judgement displayed. Calm, pleasant and cooperative. Patient smiling, interacting appropriately. Patient reported pain rated 2/10 to right knee. States "that new medication is helping a lot!" Patient denies anxiety. Reports depression rated 5/10 due to wanting to be able to go home. States that she understands she is waiting for placement. States that "it just kind of wears on you, you know". Denies SI/HI/AH/VH. Patient ate 100% HS snack.
[2019-08-20 07:48] VITALS: BP 109/78
[2019-08-20 10:27] VITALS: BP 109/78
--- NOTE | 2019-08-20 11:09 | NUR ---
1105 RESUMMED CARE FROM OVERNIGHT SHIFT THIS AM, PATIENT IN DAY ROOM TALKING WITH ROOMMATE. PATIENT ATE BREAKFAST TOOK MEDICATION WITHOUT INCIDENCE. PATIENTS ABDOMEN SOFT ROUND BOWEL SOUNDS PRESENT, PATIENT DENIES SI/HI/AH/VH AT PRESENT. PATIENT COMPLAINED OF KNEE PAIN THIS MORNING IBUPROFEN 600 MG GIVEN. PATIENT WANTS TO GET OUT OF HERE AND STATES SHE IS GOING STIR CRAZY BEING HERE. I ENCOURAGED PATIENT TO BE PATIENT AND ASKED IF SHE WANTED TO DO WORD SEARCHES TO DISTRACT HER. PATIENT DENIED WILL CONTINUE TO MONITOR PATIENT FOR BEHAVIORS AND SAFETY.
[2019-08-20 19:42] VITALS: BP 131/73
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
[2019-08-21 01:13] VITALS: BP 131/73
--- NOTE | 2019-08-21 05:58 | NUR ---
SLEPT WELL OVERNIGHT WITH 8.2 HOURS SLEEP.
[2019-08-21 07:33] VITALS: BP 147/83
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
--- NOTE | 2019-08-21 13:56 | NUR ---
CATRACHITO sent referrals to the following [facility]- [phone] [facility] [phone] [facility] [phone]
[2019-08-21 19:10] VITALS: BP 130/71
--- NOTE | 2019-08-22 00:34 | NUR ---
ASSUMED CARE ON 08/21/19 @ 19:15, AMBULATES AD LOVE THROUGH THE MILEU. COOPERATES WITH ASSESSMENT, WNL. ANXIOUS AND AGITATED, REPORTS DOES NOT WANT TO BE IN THE HOSPITAL, AND FEELS AGITATED THAT SHE CANNOT LEAVE THE [facility] UNIT AT WILL. DISCUSSED LOOKING FOR THE GOOD IN LIFE, AND FINDING SOMETHING TO BE THANKFUL FOR, ONE THING IN LIFE TO BE GRATEFUL FOR. SUGGESTION MADE TO LOOK AT THE RAIN AND SEE HOW BEAUTIFUL IT IS. PT CALMED AND AGREED THAT PERHAPS THAT MIGHT BE SOMETHING TO LOOK UPON A SINGLE RAY OF HOPE. BECAME CALMER AFTER THE ONE ON ONE TALK AND QUETIAPINE 25MG AND TYLENOL 650 FOR KNEE PAIN OF 5/10, BOTH TAKEN @ 21:50. RETIRED TO BED BY 22:15, AND ASLEEP SHORTLY AFTERWARD. IN BED AT THIS WRITING, EYES CLOSED, RESPIRATIONS EVEN AND UNLABORED. BED IN LOW POSITION. WILL CONTINUE TO MONITOR Q 12 MINUTES FOR PATIENT SAFETY.
[2019-08-22 00:51] VITALS: BP 130/71
--- NOTE | 2019-08-22 06:09 | NUR ---
7.4 HOURS SLEEP OVERNIGHT
[2019-08-22 11:44] VITALS: BP 159/74
--- NOTE | 2019-08-22 12:17 | NUR ---
CATRACHITO received a call from Yadira Werner, pt's daughter in law, inquiring on if SW can come to their home for a family meeting. CATRACHITO explained she can arrange one via phone or [email or web address]. Yadira also asked if pt has her car keys; her car is parked at the [place] station. SW asked pt if she had them and she said yes. Yadira said she will contact SW back on when they can do the family meeting and also flower buncher or picker her keys. SW team will continue to follow pt during her stay on this unit.
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
--- NOTE | 2019-08-22 15:15 | NUR ---
RT Progress Note- Lesley's participation in recreation groups and activities is variable and dependent upon her mood. She is quick to provide an excuse as to why not participate- dont feel good, mad, etc. She does express some hopelessness as well as anger in her situation. She has participated in exercise, music, risk taking game, and Carter[place]Waters game throughout this review period.
--- NOTE | 2019-08-22 16:06 | NUR ---
CATRACHITO sent referrals to [facility], [facility], and [facility] on pt's behalf. CATRACHITO followed up with Kayla and [facility]ib[facility] who both denied pt. CATRACHITO team will continue to follow pt during her stay on this unit.
[2019-08-22 19:45] VITALS: BP 133/76
--- NOTE | 2019-08-23 02:35 | NUR ---
Assumed care at change of shift. At that time pt was sitting in day room watching TV and conversing with peers. She is alert and oriented x 4. She does admit to "being an addict" when discussing discharge planning. She correctly states that they haven't found an accepting facility yet and the need for a meeting with son for discharge planning. She expresses no anger, or pain at this time. She asked for and received PRN Seroquel with HS medications for anxiety. She states that she is "afraid of some of these people". Pt. requested to get "locked in" her room and it was explained that doors could remain closed just not locked. She retired to her room after HS meds and readied for bed/sleep. No signs or symptoms of pain or distress noted. She denies SI/HI/AH/VH. She ambulates ad sandeep with slow and steady gait.
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
[2019-08-23 05:08] VITALS: BP 133/76
[2019-08-23 07:45] VITALS: BP 157/76
--- NOTE | 2019-08-23 10:46 | NUR ---
Assumed 0700. While in the dayroom was seen talking to herself, rocking her body back and forth, rubbing her knees. She denied pain. She was complimentary of her breakfast. Compliant with medication.
--- NOTE | 2019-08-23 14:36 | NUR ---
CATRACHITO spoke with Yadira Werner who said that Dr. Mata and her arranged for the family meeting to occur around 1500 tomorrow. She also said pt's father will be coming to retrieve the keys to her car tomorrow. CATRACHITO followed up on referrals from yesterday and did not get a response for most; Lola with [facility] said [facility] is considering pt's referral. SW team will continue to follow pt during her stay on this unit.
[2019-08-23 20:07] VITALS: BP 97/48
[2019-08-24 01:00] VITALS: BP 118/72
--- NOTE | 2019-08-24 05:05 | NUR ---
08-23-19 CARE TRANSFERED AT 1915 OBSERVED PT SITTING IN DAY ROOM. 2005 PT AAOX3, PT PRESENTS CALM AND COOPERATIVE DURING NURSING ASSESSMENT. PT DENIED ANY PAINT AT THIS TIME AND DENIED SI/SH/HI/AVH. [id number] PT PRESENTED ANXIOUS AND TEARFULL OVER SITUATION. PT ALSO REPOTED THAT HE LOWER BACK WAS HURING AND SCALED AT A 7 ON 0-10 SCALE AND THEN WHEN REASSESSED PT SCALED AT A 3 ON 0-10 SCALE. OF NOTE, PLEASE REFER TO NURSING INTERVENTIONS FOR MORE INFORMATION. ZERO ACUTE DISTRES NOTED.
[2019-08-24 08:22] VITALS: BP 135/78
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
--- NOTE | 2019-08-24 19:18 | NUR ---
Care of patient assumed at 1915. Patient is in her room pacing. Reports that she is bored and "pissed" because her hair is frizzy and she doesn't have the ability to care for it currently. Cooperative with assessment. Denies SI/HI. Denies anxiety though she is irritable at this time. Becomes more irritable when she is redirected for inappropriate boundries with a male peer. Demands to be given night clothes. Is offered a hospital gown and refuses. Verbally abusive to staff, "You just need to shut your fucking mouth". HS, BS, and LS all WNL.
[2019-08-24 19:44] VITALS: BP 124/61
[2019-08-25 07:54] VITALS: BP 141/81
--- NOTE | 2019-08-25 13:48 | NUR ---
CATRACHITO received a call from pt's dad and sister Slime stating that they are there to peanut picker pt's keys so they can move her care. After speaking to pt about what was about to occur, CATRACHITO took the keys downstairs. CATRACHITO provided supportive listening to Slime and pt's dad about their concerns. CATRACHITO spoke with pt and provided her an update. She said she is ready to leave. She feels caged up. SW team will continue to follow pt during her stay on this unit.
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
--- NOTE | 2019-08-25 19:18 | NUR ---
Care of patient assumed at 1915. Patient is sitting in day room watching TV. Due to the chaos and volume in the day room, interview is moved to bed room. Patient is A/O x 4. Complains of 8/10 pain in right knee and receives Ibuprofen. Denies SI/HI. Reports frustration and anger over length of stay. Doesn't believe that the family meeting will ever happen, and that she has just been dumped here. Reports partial pain relief 30 minutes later. Patient attempts to go to bed, but is kept up by her room mate that will not stop ringing her arteaga for no reason at all. As a result, patient is moved to another room.
[2019-08-25 20:00] VITALS: BP 121/68
[2019-08-26 08:53] VITALS: BP 134/71
[2019-08-26 13:01] VITALS: BP 134/71
--- NOTE | 2019-08-26 15:09 | NUR ---
PATIENT HAS BEEN UP, AND OUT ON THE UNIT, AMBULATE WITH SLOW STEADY GAIT. PATIENT HAS TAKEN MULTIPLE INTERMITTENT NAP THIS AFTERNOON. PRN TYLENOL GIVEN FOR HEADAHE OF 7/10, WHEN REASSESSED, DECREASED TO 5/10. PATIENT TOOK HAS TAKEN MEDICATION WHOLE WITHOUT DIFFICULTY, SHE IS EATING MEALS, AND DRINKING FLUID WELL. PATIENT DENIES SUICIDAL/HOMICIDAL IDEATION. SHE RATED DEPRESSION 5/10, ANXIETY 4/10. PATIENT IS DELUSIONAL THIS AFTERNOON, "I NEED TO DO SOMETHING ABOUT MY BANK ACCOUNT SOMEONE IS MESSING WITH MY MONEY". PATIENT REDIRECTED THAT SHE IS IN THE HOSPITAL AT THIS TIME, AND TODAY IS WEDNESDAY, THAT SHE SHOULD TALK TO SOCIAL WALKER ON WEDNESDAY ABOUT HER BANK ACCOUNT, SHE VERBALIZES UNDERSTANDING. PATIENT IS INTERACTING WELL WITH PEERS, GOOD EYE CONTACT. AFFECT IS FLAT, MOOD IS SAD. NO SIGN OF ACUTE DISTRESS NOTED AT THIS TIME, WILL MONITOR FOR SAFETY.
--- NOTE | 2019-08-26 17:33 | NUR ---
Patient was offered opportunity to participant in group this date. Participant declined stating she was not feeling well.
--- NOTE | 2019-08-26 19:18 | NUR ---
Care of patient assumed at 1915. Patient is in the day room watching TV with peers. Said she enjoyed watching movies today. Complains of continued headache and is given Ibuprofen with HS meds. HS, BS, LS all WNL. Gets upset at 2130 when she asks for more snacks and is denied as she just had a snack at 1999. Patient goes to bed shortly after and sleeps until approximately 0330 when she comes out saying there is a man in her room. Staff respond to room to find a confused patient milling about in her room. Confused patient is removed and she is encouraged to return to bed. Upon waking at 0600, she requests [employer] for dentures, and points out a canker sore (upper right) where her dentures rub.
[2019-08-26 20:09] VITALS: BP 121/98
[2019-08-27 07:46] VITALS: BP 158/74
[2019-08-27 08:58] VITALS: BP 158/74
--- NOTE | 2019-08-27 10:00 | NUR ---
Assumed care 0700. Ate breakfast without difficulty. Had pleasant conversation with tablemate. In talking with other peers got herself worked up and anxious talking about her upcoming placement. One time Quietapine ordered to decrease nxiety. Pt. went into shower-med to be given after shower finished.
--- NOTE | 2019-08-27 16:16 | NUR ---
Patient attended group. Group was focused on calming the body. Patient was actively engaged and made positive contributions to the group. She gave positive feedback to another patient who was struggling during group.
[2019-08-27 20:28] VITALS: BP 130/77
--- NOTE | 2019-08-28 03:12 | NUR ---
ASSESSMENT: PT REMAIN ALERT AND ORIENT TIMES THREE. WAS COOPERATIVE WITH CARE DURING THE SHIFT. DID GET UPSET WITH A TECH WHEN THE CHANNEL WAS CHANGED ADN WHEN HER ROOM MATE WAS NOT READY FOR THE LIGHTS TO BE TURNED OFF ONCE READY FOR BED. THIS RN ENCOURAGED MICHELLE TRY TO GET ALONE WITH HER ROOMMATE. THEY BOTH AGREED TO LEAVE THE LIGHTS ON FOR 30 MORE MINS BEFORE TURNING THEM OFF AND THEY BOTH GET SOME SLEEP, CSS, AFEBRILE. SLOW PROGRESS TOWARDS DC GOALS, WILL CONTINUE TO MONITOR.
[2019-08-28 07:28] VITALS: BP 119/60
--- NOTE | 2019-08-28 10:56 | NUR ---
CATRACHITO contacted Yadira Werner to schedule a family meeting. No answer. CATRACHITO lft msg. CATRACHITO team will continue to follow pt during her stay on this unit.
--- NOTE | 2019-08-28 18:00 | NUR ---
Winds up with increasing anxiety after lunch. She has several cups of coffee during the day. She increases her rocking back and forth, She is talking and mumbling to herself in her room and at times in the dayroom. Every day this nurse has had this patient she has been pleading/upset/tearful about not wanting to be kept against her will, wanting her car. She has short term memory loss. While in the bathroom patient was asked to come to the dayroom to get her medication when she was available. Upon going into the dayroom she seemed to have no recognition or recollection that she was requested to see her nurse. She was not responding to empathy for her concerns about being here so long. In fact she became angry at nurse trying to be supportive of patient. She stated you don't know what it is like to be here 19/10.
[2019-08-28 19:31] VITALS: BP 134/82
[2019-08-28 19:45] VITALS: BP 134/82
--- NOTE | 2019-08-29 00:54 | NUR ---
AT BEGINNING OF TRAVELING INVENTORY ASSOCIATE PATIENT HAD JUST GOTTEN OFF THE PHONE AND WAS STANDING AND PACING AT END OF RUIZ AND MUMBLING TO HER SELF AND APPEARED ANGRY. I APPROACHED PATIENT AND ASKED IF ALL WAS OK. SHE STATES SHE IS JUST UPSET AND DID NOT WANT TO TALK ABOUT IT. I TOLD HER I WAS AVAILABLE TO TALK IF SHE DECIDED TO. PATIENT STATED SHE WANTED HER HS MEDS EARLY SO SHE COULD GO TO BED. SHE REFUSED HS SNACK AT FIRST AND I REMINDED HER THAT I WOULDN'T BE ABLE TO GIVE HER ONE IN THE MIDDLE OF THE NIGHT. SHE THEN DECIDED SHE WOULD EAT SOME ICECREAM. DAY SHIFT NURSE, PRISCILLA STATES THAT PATIENT WOULD GET ANGRY ALL OF A SUDDEN TODAY ABOUT HER CIRCUMSTANCES. SHE DOES NOT WANT TO GO TO AL AND SHE WANTS TO BE ABLE TO LIVE ON HER OWN AND DRIVE HER CAR. SHE DOES NOT WANT A DPOA MAKING DECISIONS FOR HER. SHE WOULD CALM FOR AWHILE AND THE SUDDENLY GET MAD AGAIN AND YELL AND CRY (WITHOUT TEARS). PRISCILLA, RN ALSO CALLED TO SAY THAT AN EMPTY WC HAD BEEN ROLLED OVER PATIENT'S R FOOT AT LUNCH TODAY BUT NO INJURY AND PATIENT STATES SHE WAS FINE AND IT DID NOT HURT. PATIENT HAS NOT MENTIONED IT TONIGHT. SHE DENIES PAIN. SHE DID TAKE HER MEDS WHOLE WITH WATER. SHE WAS IN BED AND SLEEPING BY 2100. SHE HAS BEEN CALM AND COOPERATIVE SO FAR TONIGHT AFTER HER EARLY SHIFT MELT DOWN IN WHICH SHE WAS ABLE TO CALM HERSELF WITHOUT INCIDENT. PT DENIES SI/HI/AVH. SHE IS SLEEPING AT THIS TIME. BED IN LOW POSITION. CONTINUING TO MONITOR.
--- NOTE | 2019-08-29 02:25 | NUR ---
PT WITH C/O RIGHT UPPER GUM SWELLING FROM A CUT FROM HER UPPER DENTURES. PT WAS GIVEN TYLENOL 650MG PO. SMALL AREA ON RIGHT OUTSIDE GUM IS RED AND SWOLLEN. NOTIFIED DR POP AND HE ORDERED AMOXICILLIN 500MG TID TO BEGIN THIS A.M.. PATIENT'S PAIN LEVEL WAS 7/10 AND PT FELL ASLEEP AFTER TAKING TYLENOL AND HAS BEEN ASLEEP ALL NIGHT. WILL CONTINUE TO MONITOR.
[2019-08-29 07:56] VITALS: BP 150/76
--- NOTE | 2019-08-29 09:23 | NUR ---
Yesterday, CATRACHITO received a call from Rajni with [employer] asking for 6 months of bank statements for pt. CATRACHITO contacted Yadira Werner and made that request; she also provided her with Rajni' phone number. She said she has access to pt [employer] statements. CATRACHITO also scheduled pt's family meeting today at 1500. CATRACHITO team will continue to follow pt during her stay on this unit.
--- NOTE | 2019-08-29 12:56 | NUR ---
Up ambulating in unit with regular, steady gait. Requesting Ibuprofen for R knee pain. States it doesn't hurt now, "zero pain" but starts hurting once she starts walking on it. Alert and orientated to person, place but not to time or situation. Becomes very frustrated wanting to "get the fuck out of here". Becomes angry when breakfast isn't warm enough and she is going to lose a good seat in the dining area. Denies SI/HI. Breath sounds clear t/o, bilaterally equal. Reg HR auscultated. Color pink with brisk capillary refill and palpable peripheral pulses. Independent with voiding. Active bowel sounds over soft, full abdomen. Did not participate in group this AM but instead slept in room. Currently ambulating in day room without s/o distress.
--- NOTE | 2019-08-29 16:20 | NUR ---
CATRACHITO, Dr. Mata, and pt attended a family meeting with Yadira and Luis Werner via phone. Pt's medications were reviewed as well as her dx. Yadira said she spoke to Rajni with [employer] who said she is out of the office today, but she has arranged to give him pt's [employer] statement.
[2019-08-29 19:50] VITALS: BP 136/62
--- NOTE | 2019-08-30 04:55 | NUR ---
Assumed care of pt @ 1900. Pt calm et cooperative at beginning of shift but had several episodes throughout the shift of verbal outbursts et attention-seeking behavior. Pt c/o roommate coughing et chose to sleep on couch in dayroom around 3am. Took medications whole without difficulty. Ambulates the halls ad sandeep with steady gait. VSWNL. Health assessment with no abnormalities other than previously noted. Denies SI/HI. Independent with toileting et ADLs. Socialized with peers in dayroom unitl HS. Currently resting on couch in dayroom with eyes closed. Will continue to monitor per protocol.
[2019-08-30 07:48] VITALS: BP 146/87
--- NOTE | 2019-08-30 08:50 | NUR ---
Waleska was in the day room when I came on duty. Waleska ate 100% of her meal this AM. Lungs clear,bowels sounds active. Pedal pulse strong, no ankle or foot edema noted. Waleska denies any physical pain. waleska said "she wants to go home". She is hope full that they will find juan place soon. Staff will continue to monitor pt.
[2019-08-30 09:02] VITALS: BP 146/87
--- NOTE | 2019-08-30 10:57 | NUR ---
CATRACHITO spoke with Rajni who said he received pt's financial statements and will be reviewing her with his administration team today. However, he also stated that his agency is cautious on taking patients who have had SI in the last year. CATRACHITO explained that pt's SI statements are more of hopelessness than they are a warning of her attempting. CATRACHITO explained at this time, to her knowlege, pt has not attempted suicide. Nor has she made movements to do so while on this unit. SW team will continue to follow pt during her stay on this unit.
--- NOTE | 2019-08-30 12:16 | NUR ---
RT Progress Note- Lesley's participation in recreation therapy remains sporadic. She continues to present in a poor mood as she is discouraged by her situation. This likely prohibits her participaton though she gives excuses such as not feeling well as to why she is not participating. She has befriended a female peer on the unit who she confides in when frequently.
--- NOTE | 2019-08-30 14:39 | NUR ---
SW refaxed a referral to [facility] per their request. SW team will continue to follow pt during her stay on this unit.
[2019-08-30 19:43] VITALS: BP 138/114
[2019-08-30 22:13] VITALS: BP 140/80
--- NOTE | 2019-08-31 02:20 | NUR ---
PATIENT WAS UP WALKING IN THE HALLWAY AND WAS OUT TO DINING ROOM FOR HS SNACK TONIGHT. SHE APPEARED FRUSTRATED AND RESTLESS. WHEN ASKED IF SHE WAS FRUSTRATED SHE SAID SHE WAS BUT DID NOT WANT TO TALK ABOUT IT. TOLD HER IF SHE CHANGED HER MIND THAT I WOULD BE AVAILABLE TO LISTEN. SHE CALMED A LITTLE AFTER THAT. SHE DENIES PAIN. SHE DID TAKE TRAZADONE FOR SLEEP TONIGHT. NO BEHAVIORS TONIGHT. PATIENT DENIES SI/HI/AVH. SHE STATES SHE DID HAVE A BM TODAY. BILATERAL LUNGS CTA, HEART SOUNDS REGULAR. PT STILL FEELS SHE CAN TAKE CARE OF HERSELF AND DOES NOT NEED TO BE PLACED SOMEWHERE OR HAVE A DPOA. PT IS SLEEPING AT THIS TIME. EVEN, UNLABORED RESPIRATIONS. WILL CONTINUE TO MONITOR. BED IN LOW POSITION AND ROUTINE ROUNDS TO ASSESS STATUS AND SAFETY OF PATIENT.
--- NOTE | 2019-08-31 06:03 | NUR ---
PT REQUESTED TYLENOL 650MG FOR KNEE ACHES TODAY. SHE IS IRRITABLE. SHE WAS MAD AT A PRIOR AUTHORIZATION TECHNICIAN AND SAID SHE WAS MEAN TO HER WHEN SHE ASKED FOR MED FOR KNEE PAIN. PRIOR AUTHORIZATION TECHNICIAN SAYS PATIENT ASKED FOR ICECREAM. NOT SURE IF PT WAS MANIPULATING OR IF PRIOR AUTHORIZATION TECHNICIAN MISHEARD HER. PRIOR AUTHORIZATION TECHNICIAN HAD TOLD HER NO AND TO TRY AND GET SOME SLEEP. PATIENT WAS GIVEN TYLENOL AND HAS BEEN UP PACING THE HALLS AND TALKING TO HERSELF. SHE KEEPS SAYING "IT'S NOT TRUE." SHE REFUSES TO TALK ABOUT HER THOUGHTS WITH THIS NURSE. PATIENT IS CALMING AND IS SITTING IN DINING ROOM AT THIS TIME.
[2019-08-31 07:58] VITALS: BP 145/80
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
[2019-08-31 15:20] LABS: MCH 31.4 pg (26.0-34.0); MCHC 33.4 g/dL (28.0-37.0); MCV 94.3 fL (80.0-100.0); RBC 4.13 mil/uL (4.20-5.00); RDW 14.7 % (10.5-14.5); WBC 5.4 thou/uL (4.0-11.0)
[2019-08-31 15:31] LABS: CALCIUM 9.1 mg/dL (8.5-10.1); CREATININE 0.9 mg/dL (0.6-1.0); POTASSIUM 4.3 mmol/L (3.5-5.1)
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
--- NOTE | 2019-09-01 05:37 | NUR ---
Assumed care of pt @ 1900. Pt calm et cooperative this shift. One verbal outburst of cursing during shift but pt calmed herself quickly et no further behaviors noted. Took medications whole without difficulty. Ambulates the halls ad sandeep with steady gait. Socialized in dayroom with peers until HS. VSWNL. Health assessment with no abnormalities noted at present time. Denies SI/HI. Currently resting in bed with eyes closed. Will continue to monitor per protocol.
[2019-09-01 07:00] VITALS: BP 117/62
--- NOTE | 2019-09-01 09:41 | NUR ---
I found Lesley in the day room with other pt's when I came on duty this AM.annette greeted me and was rocking in her chair. Lesley said her goal [place] is to go to a jail were her friend is . She is waiting for her social science analyst to tell her when that will be. I assist her, Lungs clear x2,bowel sound active, pedal pulse strong, and equal. I asked her how the nasal spray was working rating it from 1 being the worst, and 10 the best, she said 8 it has helpe a lot. Pt had 1 bm this am. Lesley is participating in groups.
[2019-09-01 11:21] VITALS: BP 117/62
--- NOTE | 2019-09-01 14:12 | NUR ---
CATRACHITO recieved a call From Cecilia Self, clinical nutrition manager at [facility] [phone]. Neelam asked if was seeking guardianship for the Pt. CATRACHITO informed this was not the plan at this time, however CATRACHITO is looking for a placment for the Pt. Cecilia asked if Pt was agreeable and if Pt had an upcoming discharge date. CATRACHITO informed Pt was in agreement with the treatment and discharge plan. Also there has not been a discharge date set for Pt. CATRACHITO encouraged Cecilia to call Wednesday to speak with Eliza Huerta concerning the matter for more information. Cecilia had no other questions or concerns during this call.
--- NOTE | 2019-09-01 14:17 | NUR ---
CATRACHITO Followed up on the following referrals [facility]- Pt denied due to hx of SI [facility]- Pt denied due to behavioral concerns [facility]- denied due to not having a female bed Still awaiting a phone call back from [facility]
[2019-09-01 19:43] VITALS: BP 126/68
--- NOTE | 2019-09-02 02:59 | NUR ---
ASSUMED CARE ON 09/01/19 @ 19:15, SEATED IN THE DAY ROOM WITH PEERS, SOCIALIZING AND WATCHING TV. HRRR, LUNGS CTA BILAT, ABD NORMOACTIVE BOWEL SOUNDS OVER A FLAT SOFT BELLY. COOPERATIVE WITH CARE AND INDEPENDENT WITH AMBULATION AND TOILETING. IN BED EYES CLOSED, RESPIRATIONS EVEN AND UNLABORED, NO DISTRESS NOTED. BED IN LOW POSITION, WILL CONTINUE ROUNDING Q 12 MINUTES FOR PATIENT SAFETY.
[2019-09-02 04:16] VITALS: BP 126/68
[2019-09-02 08:00] VITALS: BP 131/70
--- NOTE | 2019-09-02 11:56 | NUR ---
Waleska was in the day room siting watching tv. I asked her what her goal was and she said trying to stay awake, she felt very drozy this am. pain level was rated at 6 and wanted something for her sore rt.knee. Waleska was given tylenol as ordered. waleska ate all foood on her try this am.lungs clear x2, pedal pulse strong bowel sounds active. after 1 hr pain rated 3 .
[2019-09-02 12:15] VITALS: BP 131/70
[2019-09-02 19:00] VITALS: BP 100/52
--- NOTE | 2019-09-02 19:21 | NUR ---
Care of patient devora at 1915. Patient is in the day room watching TV. Denies current pain. A/O x3, missing the date by better than a week. Denies SI/HI. HS, LS, BS all WNL. Last BM 09/02/19. States she feels too sedated with the increased Seroquel. Compliant with HS meds. Begins yelling in day room, demanding that her door be shut and locked because of wandering patients. Patient is assured that staff will prevent others from entering her room.
[2019-09-03 07:39] VITALS: BP 144/79
--- NOTE | 2019-09-03 11:37 | NUR ---
Pt was in the day roomthis AM when i came on duty. Pt c/o beeing very sleepy this am and sleept well last nite. On assesment of lungs were clearx 2 , pedal pulse was strong no edema was noted . Pt's goal for the day was to sleep and be discharged. annette says she is anxious to know when she will be discharged. NO other issues noted at this time. .
[2019-09-03 16:42] VITALS: BP 144/79
[2019-09-03 22:00] VITALS: BP 144/79
--- NOTE | 2019-09-03 22:58 | NUR ---
PT WAS ASLEEP WHEN I CAME ON DUTY AT 1900. PATIENT AWOKE AROUND 2014. AT THIS TIME I TOOK PATIENT'S VSS WHICH WERE STABLE. SHE HAD REFUSED EARLIER FOR CONTINUOUS IMPROVEMENT FACILITATOR D/T SLEEPING. PATIENT WITH C/0 OF BILATERAL KNEES AND LOWER LEGS HURTING. SHE STATES IT'S FROM WALKING ON THESE HARD FLOORS. IT WAS TOO SOON TO GIVE HER TYLENOL SO GAVE HER HS MEDS THAT INCLUDED GABAPENTIN. PATIENT REQUESTED A SHOWER TONIGHT. HELPED PATIENT GET SET UP FOR SHOWER. SHE WASHED HAIR ALSO. PATIENT HAS BEEN CALM AND APPROPRIATE TONIGHT. SHE HAD AN HS SNACK OF ICE CREAM. TYLENOL 650MG WAS GIVEN TO PATIENT AT 2200 D/T STILL MINOR PAIN 3/10 IN BLE'S. NO SWELLING. SHE ALSO REQUESTED HER TRAZADONE AT THIS TIME ALSO. SHE THEN WENT ON BACK TO BED AND IS SLEEPING AT THIS TIME. SHE HAS NOT HAD ANY ANGRY OUT BURSTS TONIGHT. SHE DENIES SI/HI/AVH. CONTINUING TO DO ROUTINE CHECKS. BED IN LOW POSITION.
[2019-09-03 23:43] VITALS: BP 129/79
[2019-09-04 07:38] VITALS: BP 126/71
--- NOTE | 2019-09-04 10:14 | NUR ---
Followup: continues to eat well, >75% meals and wts are now holding steady with healthy BMI status. Low nutrition risk
--- NOTE | 2019-09-04 12:56 | NUR ---
CATRACHITO contacted Rajni with [facility] and asked him to reconsider the decision; CATRACHITO explained that she talked with the entire medical team about pt and all agree she is not suicidal. Rajni said their vmware systems administrator is known for denying people who exhibit SI. CATRACHITO offered to send him a letter from Dr. Mata confirming that pt is not currently. nor has been during her stay, suicidal. Rajni said that was fine and he will try to persuade the vmware systems administrator to make a new decision. SW team will continue to follow pt during her stay on this unit.
--- NOTE | 2019-09-04 14:49 | NUR ---
FULL RANGE AFFECT. DENIES SI/SH/HI DURING 1;1 WITH THIS RN. PLEASANT AND COOPERATIVE. DENIES C/O PAIN/DISCOMFORT. GAIT STEADY WITHOUT ASSISTIVE DEVICES.
[2019-09-04 19:35] VITALS: BP 138/76
--- NOTE | 2019-09-04 20:20 | NUR ---
PATIENT IS SITTING UP IN DINING ROOM BESIDE ANOTHER FEMALE PATIENT WATCHING TV. SHE ATE ICECREAM FOR HS SNACK. TONIGHT SHE APPEARS A LITTLE TENSE IN HER BODY LANGUAGE. HER VSS. SHE DID HAVE BM TODAY. SHE DENIES SI/HI/AVH. PATIENT IS A/0 X 2-3. PATIENT DID SAY SHE IS WANTING TO LEAVE SOON. LET HER KNOW THAT THE PLAN IS TO GET HER PLACED IN NEXT COUPLE OF DAYS. SHE WAS HAPPY WITH THIS AND RELAXED A LITTLE. PATIENT IS DENYING PAIN AT THIS TIME. PATIENT IS CALM AND NOT ANGRY. CONTINUING TO MONITOR PATIENT WITH ROUTINE ROUNDING FOR STATUS AND SAFETY ASSESSMENT.
[2019-09-04 20:30] VITALS: BP 138/76
--- NOTE | 2019-09-04 20:38 | NUR ---
PATIENT SITTING IN THE DINING ROOM QUIETLY. HE WAS EATING ICECREAM FOR HS SNACK. HE APPEARS RELAXED. HE DENIES PAIN. HE DENIES SI/HI/AVH. VSS. BP IS 98/77 AND PULSE IS 85. T IS 98.7. PATIENT STARTS TO GET FRUSTRATED AND ESCALATING WHEN ASKED HOW HE DOING TODAY. HE STATES TONIGHT THAT HE IS SCARED. WHEN ASKED WHAT HE IS SCARED ABOUT HE SAID HE DIDN'T KNOW BUT THAT THINGS JUST DID NOT SEEM RIGHT HERE. HE SAYS HE DOES NOT WANT TO AND THAT HE JUST NEEDS TO LEAVE THIS PLACE. HE DENIES PAIN. I LISTENED AND REASSURED HIM THAT HE IS IMPROVING. EXPLAINING TO HIM WHERE HE IS AND WHY AND THAT THE HOPES IS TO GET HIM BACK TO [facility] HOME [facility] SOON POSSIBLE. HE CALMED SOME AND FINISHED EATING HIS ICECREAM. LCTA, NO EDEMA, HRR. PATIENT HAD SHAVE AND SHOWER TODAY. HE STATES HE FEELS BETTER AFTER HAVING SHOWER. PATIENT HAS PROBLEMS EXPRESSING WITH WORDS WITH SOME APHASIA. HE HAS PROBLEMS SEQUENCING STEPS IN ADL'S AND NEEDS DIRECTIONS AND SUPERVISED. HIS SISTER JENNIFER CALLED TO CHECK ON HIS STATUS TONIGHT. THEY ARE HOPING HE GETS BACK TO [facility] SOON. [employer] IS WORKING WITH HER ON ACTIVITIES THAT THEY MAY BE ABLE TO DO TO HELP THE PATIENT BE SUCCESSFUL AND CALM. ROUTINE ROUNDING TO CHECK STATUS AND ASSESS SAFETY.
--- NOTE | 2019-09-04 23:15 | NUR ---
CHECKED ON PATIENT AT AROUND 2200 ROUND AND PATIENT WAS IN HER BED WITH LIGHTS OUT CRYING AND TALKING TO HERSELF, SAYING,'IT'S JUST NOT RIGHT.' WHEN I ASKED IF SHE WAS OK SHE SAID NO. SHE STATES THAT A SUPERVISOR [employer] AND EM[employer]IERS WAS RUDE TO HER AND MEAN. SHE COULD NOT OR WOULD NOT, (DON'T KNOW WHICH) TELL ME WHAT HAPPENED TO MAKE HER SAY THAT. I SPOKE WITH HER AND APOLOGIZED IF HER FEELINGS WERE HURT AND ASKED IF I COULD DO ANYTHING ELSE. SHE SAID SHE JUST WANTED TO TRY AND SLEEP. I SPOKE WITH SUPERVISOR ESTERS AND [employer]IERS AND SHE STATES THAT PATIENT WANTED HER DOOR CLOSED ALL THE WAY FOR THE NIGHT AND SHE HAD TOLD HER THAT SHE COULD NOT CLOSE IT ALL THE WAY DUE TO THE UNIT RULES. PATIENT GOT UPSET WHEN SHE WAS TOLD NO. PATIENT IS SLEEPING NOW AND APPEARS MORE RELAXED. SHE STILL DENIES SI/HI/AVH. SHE DOES TALK OUT LOUD TO HERSELF WHEN SHE GETS FRUSTRATED AND STATES WHAT SHE IS THINKING. SHE STAYS TO HERSELF AND WORKS TO PACE AND CALM HERSELF. WILL CONTINUE TO MONITOR PT THRU ROUTINE ROUNDING TO ASSESS STATUS AND SAFETY OF PATIENT.
--- NOTE | 2019-09-05 03:42 | NUR ---
PATIENT CAME OUT TO DINING ROOM AROUND 0300. SPOKE WITH PATIENT AND SHE SAYS HER THROAT IS FEELING SORE. SHE STATES THAT HER CHEST IS FEELING SORE WITH SLIGHT PRESSURE AT MID STERNUM. PATIENT STATES AT THIS TIME THAT SHE IS NOT FEELING ANXIOUS WHEN ASKED. NO SOB. VSS 142/80 P66 R16 96% T97.4. LUNGS HAVE EXPIRATORY RUB. HAD ANOTHER RN LISTEN ALSO TO CONFIRM. HAD PATIENT COUGH AND CLEAR THROAT. LUNG EXPIRATORY RUB CLEARED SLIGHTLY. PATIENT'S THROAT SHOWS SOME RED IRRITATION FROM DRAINAGE. CALLED AND SPOKE WITH MIGUEL MUNIZ BY PHONE. SHE ORDERED STAT TROPONIN LEVEL FOR LAB. ALSO ORDERED IBUPROFEN 600MG PO AND MYLANTA 15CC PO. PATIENT TOOK MEDS PO WITHOUT INCIDENT. PATIENT THEN SAYS SHE IS FEELING STRESSED. SHE STATES SHE DOESN'T KNOW WHEN AND WHERE SHE WILL END UP WHEN DISCHARGED. LAB HERE FOR LAB DRAW NOW. PATIENT SITTING QUIETLY. HER CHEST SORENESS AND PRESSURE 6/10.
--- NOTE | 2019-09-05 03:53 | NUR ---
TROPONIN LAB DRAWN. PATIENT'S PAIN/SORENESS IN CHEST IS DECREASING AND DOWN TO A 4/10. PATIENT STATES THROAT IS SORE. PATIENT DECIDED TO GO LAY DOWN AND TRY TO SLEEP SOME MORE. PATIENT IS CALM. CONTINUING TO MONITOR.
--- NOTE | 2019-09-05 04:22 | NUR ---
PATIENT IS CURRENTLY SLEEPING WITH EVEN UNLABORED RESPIRATIONS. CONTINUING TO MONITOR.
[2019-09-05 07:42] VITALS: BP 127/69
--- NOTE | 2019-09-05 12:00 | NUR ---
CATRACHITO received a vm from Lola with [facility] asking that a DA-[id number] be faxed to her on pt's behalf for [facility] to review. They are concerned about her making SI statements and if she has attempted suicide in the past. CATRACHITO contacted Lola and explained that to her knowledge pt has not attempted suicide. She also faxed to Lola a copy of the DA-[id number]. SW team will continue to follow pt during his stay on this unit.
--- NOTE | 2019-09-05 12:59 | NUR ---
DENIES CHEST PAIN OR DISCOMFORT DURING 1;1 INTERACTION/AM ASSESSMENT WITH THIS RN. DOES STATE SLEPT POORLY LAST PM AND FEELS THOUGH [facility] IS "GETTING A COLD" REPORTING INCREASED HEAD/NASAL CONGESTION AND MILD THROAT IRRITIATION-ALSO STATES "THIS HAPPENS SOMETIMES IN THE SPRING R/T MY ALLERGIES" DENIES SI/SH/HI. CONSTRICTED AFFECT BUT WILL BRIGHTEN SLIGHTLY WHEN INTERACTING WITH NURSING STAFF. GAIT STEAdy. TYLENOL 650MG GIVEN PO PRN AT 0930 FOR ABOVE REPORTED-PO FLUIDS ENCOURAGED AND ACCEPTED-REQUESTING TO REST IN ROOM-HAS BEEN RESTING IN ROOM SINCE APPROX. 0900.
[2019-09-05 19:23] VITALS: BP 132/60
[2019-09-05 21:00] VITALS: BP 132/60
--- NOTE | 2019-09-06 00:46 | NUR ---
PATIENT CAME OUT TO DINING ROOM TONIGHT AFTER SLEEPING FOR HER HS SNACK AROUND 1939. SHE IS A/0X3-4. SHE GOT FRUSTRATED WHEN SHE WAS TOLD SHE COULD NOT HAVE COFFEE SINCE IT WAS ABOUT BEDTIME. SHE WALKED OUT OF DINING ROOM FOR A SHORT TIME TALKING TO HERSELF AND SAYTING IT ISN'T RIGHT. PATIENT DID CALM HERSELF DOWN AND COME BACK IN DINING ROOM AND SAT QUIETLY WITH OTHERS UNTIL SHE HAD HER HS MEDS AND WENT TO BED. PATIENT HAS DIMINISHED BREATH SOUNDS BUT NO PAIN TONIGHT IN CHEST. VSS. SHE DOES HAVE A SCRATCHY THROAT AND STATES SHE HAS A HISTORY OF ALLERGIES AND SINUS PROBLEMS. CEPACOL LOZENGE GIVEN FOR COMFORT AND PT FINISHED THIS WITH RELIEF AND WENT TO BED. PATIENT IS SLEEPING AT THIS TIME. SHE HAS BEEN PLEASANT AND COOPERATIVE. PATIENT DENIES SI/HI/AVH. ROUTINE ROUNDING TO ASSESS FOR SAFETY AND STATUS OF PATIENT. BED IN LOW POSITION. WILL CONTINUE TO MONITOR.
[2019-09-06 07:40] VITALS: BP 158/91
[2019-09-06] MEDS ORDERED: TRAZODONE HCL50 MG PO (09:02)
[2019-09-06] MEDS ORDERED: NEURONTIN 300M300 M2 PO (09:02)
[2019-09-06] MEDS ORDERED: PEPCID20 MG PO (09:03)
[2019-09-06] MEDS ORDERED: SEROQUEL 100 M100 M1 PO (09:03)
--- NOTE | 2019-09-06 09:43 | NUR ---
CATRACHITO received a call from Yadira stating that she and her have decided that pt needs to come home. CATRACHITO again advised that they give [facility] a chance. She said she looked at reviews and did not like what was said. She said that her Luis will be home soon and will call Lesley to explain the rules. She asked if the discharge plan could be put on hold until then. CATRACHITO explained that she must cancel transportation and the facility as it is now 9am, and they are due to be here at 11. She said ok. CATRACHITO reminded her about pt's spend down that will be in effect since her Medicaid will not be switched over. Yadira said she plans to control her funds. CATRACHITO advised that they go to [employer] to get rep payee status. CATRACHITO explained she will need to get pt's psych doctor at [facility]. CATRACHITO notified pt's medical team of this change. CATRACHITO contacted [employer]. Guzman and pt's behavioral health case manager Elaine and provided an update. CATRACHITO scheduled a psych appt for 09/10 @08:15 for pt.
--- NOTE | 2019-09-06 09:50 | NUR ---
The lab called with COVID results. The results were neagtive.
--- NOTE | 2019-09-06 14:17 | NUR ---
0700 ASSUMED CARE OF PATIENT, PATIENT IN ROOM AWAKE AT THAT TIME. PATIENT TO DAYROOM AT 0710 SITTING QUIETLY ROCKING IN HER CHAIR. PATIENT IS UPSET ABOUT LEAVING, STATING "I DO NOT WANT TO GO TO THAT PLACE". PATIENT GETS UP AND STARTS TO WALK TO HER ROOM AND MUMBLES TO HERSELF SAYING "NO ONE EVER TOLD ME WHERE I WAS GOING, I HAVE NOT BEEN NOTIFIED OF ANYTHING". ACCOUNT CONSULTANT DID TALK TO PATIENT ABOUT HER BEING INFORMED OF DC BY ASSISTANT FIELD HOCKEY COACH AND SHE WAS NOTIFIED. PATIENT CRYING AND UPSTE. PATIENT TO SHOWER THIS AM. PATIENT REFUSED BREAKFAST. PATIENT IS A & O X4 BS CLEAR. PATIENT GIVEN DC INSTRUCTIONS VOICING UNDERSTANDING, CONSENTS SIGNED. PATIENT DC TO HOME WITH FAMILY AT 1055. PATIENT AMBULATED TO VEHICLE ACCOMPANIED BY STAFF. PATIENT HAS BELONGING IN HAND.
--- NOTE | 2019-09-09 01:04 | D ---
[facility] [place] [address] DISCHARGE SUMMARY Name: MICHELLE KENNEDY Room #: [facility] M.R.#: [id number] Admission: 08/08/19 Attend Phys: Castillo Mata DO Discharge: 09/06/19 Date of : 46 Report #: [id number] THIS REPORT FOR: cc: LESLIE - No family physician/PCP LESLIE - No family physician/PCP Castillo Mata DO ~ THIS REPORT FOR: //name// CC: Castillo NELSON physician/PCP DATE OF SERVICE: 09/06/2019 INPATIENT PSYCHIATRIC DISCHARGE SUMMARY ATTENDING PHYSICIAN: Castillo Mata DO. NATURALIZATION EXAMINER AT THE TIME OF DISCHARGE: Amadeo Santana MD; Consulting Neuropsychologist: Dr. Russ Almonte, Ph.D DISCHARGE DIAGNOSES: Major neurocognitive disorder due to multiple etiologies with behavioral disturbance, mild degree; psychosis, likely secondary to methamphetamine use, resolved; methamphetamine use disorder; multiple medical comorbidities include hypothyroidism, COPD, GERD, osteoarthritis. She also has tobacco use disorder. DISCHARGE PLAN: She is discharging to her son, I believe his name is Keo. The patient's outpatient followup will be with [facility] in [place], [place]. The patient needs a primary care physician. DISCHARGE MEDICATIONS: Prescriptions are gabapentin 300 mg p.o. 3 times a day for anxiety and prevention of substance use, trazodone 50 mg p.o. at bedtime for insomnia. Rx given for 2o of prn medication, otherwise a 30 day supply. to 300mg three times a day of gabapentin. Seroquel 100 mg p.o. 3 times a day for anxiety, famotidine 20 mg p.o. daily for GERD. The patient was treated for UTI at this admission. LABORATORY DATA: This admission, CBC last done on 08/31/2019, white count of 5.4, H and H 13.0 and 39.0, platelet count 336. Chemistry: Sodium on 08/31/2019 was 141, potassium 4.3, chloride 104, bicarbonate 29, anion gap 8, BUN 33, creatinine 0.9, estimated GFR 60, glucose 131, calcium 9.1. Troponin less than 0.06, free T4 of 1.0, free T3 2.19 on 08/09/2019. Toxicology was [address] [address] DISCHARGE SUMMARY Name: MICHELLE KENNEDY Anais Room #: [facility] ..#: [id number] Admission: 08/08/19 Attend Phys: Castillo Mata DO Discharge: 09/06/19 Date of : 46 Report #: [id number] positive for amphetamines, methamphetamines and opiates on 08/08/2019, otherwise grossly negative. The patient's COVID-19 PCR serology on 09/05/2019 was negative. Urine culture was negative. She did not have UTI at this admission. REASON FOR ADMISSION: Back in mid July was as follows: A 68-year-old female brought in by sergeant Guzman of the [employer]. Apparently, the patient believed there were people breaking into her home and stealing from her. These were unsubstantiated. She also made a claim that "I'm gonna kill myself." Police are familiar with the patient, they have had multiple encounters with. There was concern the patient has dementia. The patient was brought to the hospital. Initially, she was involuntary. She then was voluntary and later on she made her son her DPOA and it was enacted. Neuropsychological testing was done. Her diagnoses based on neuropsychological testing were major neurocognitive disorder, unspecified, with delusions, paranoia, mild severity; stimulant use disorder; history of bipolar disorder. We made an effort to place the patient and a nursing facility placement was secured at [facility]; however, the patient's DPOA did not want the patient placed there, therefore, she was discharged to the son and daughter in-law's home. Sergeant Guzman is aware of how the admission ended up and during admission, the patient's course was variable, some days better than others. She did express she did not want to be in a penitentiary up to the day of discharge when she learned she was not, her mood dramatically improved. The patient was not suicidal or homicidal at the time of discharge, felt to be stable for return to community. Temperature 36.8, pulse 71, respirations 16, BP 150/91, O2 sat 98%. The patient should not drive. The family is going to provide reportedly 24-hour assistance and supervision for her. MENTAL STATUS EXAMINATION: This is a well-developed, well-nourished female. Normal gait and station. Attention limited. Concentration limited. Speech is normal, rate, rhythm, tone. Thought process is linear and goal oriented. Thought content focused on discharge. Variable psychomotor agitation. No psychomotor retardation. Denied suicidal intent or plan. Denied homicidal intent or plan. Denied auditory, visual, or tactile hallucinations. Insight limited. Judgment limited. Fund of knowledge below average. PROGNOSIS: For this patient is guarded given she is not going to long-term care facility that she would benefit from. The patient is going to need to be kept very structured by her family. In my opinion, the risk of substance relapse is high with this patient because any time she feels threatened that seems to be her crutch. [facility] [address] [place] [address] DISCHARGE SUMMARY Name: BRENTMICHELLE Anais Room #: [facility] ..#: [id number] Admission: 08/08/19 Attend Phys: Castillo Mata DO Discharge: 09/06/19 Date of : 46 Report #: [id number] Time spent on discharge activities for this case is 45 minutes. <ELECTRONICALLY SIGNED> By: Castillo Mata DO 09/09/19 0104 1930 99 Castillo Mata DO /nt
--- NOTE | 2019-09-11 12:44 | NUR ---
CATRACHITO covering for CATRACHITO Eliza retrieved a voice message from Mayra with [employer] [phone] asking for a return call regarding pt. CATRACHITO returned her call and left a voice message acknowledging her call and asking for a call back.
== END 2019-09-06 10:55 | disposition home or self-care (01) | DRG 884 ==
LOC: ER 10:44 → EROBS 12:21 → SBH 12:21 → EROBS 12:36 → SBH 14:19
PROVIDERS: Emergency Medicine Emergency Medical Services; ADMIT Psychiatry & Neurology Psychiatry; ATTEND Psychiatry & Neurology Psychiatry
DX: F01.51 Vascular dementia, unspecified severity, with behavioral disturbance (principal); R45.851 Suicidal ideations; F32.9 Major depressive disorder, single episode, unspecified; F29 Unspecified psychosis not due to a substance or known physiological condition; E03.9 Hypothyroidism, unspecified; J44.9 Chronic obstructive pulmonary disease, unspecified; K21.9 Gastro-esophageal reflux disease without esophagitis; M17.0 Bilateral primary osteoarthritis of knee; F22 Delusional disorders; F41.0 Panic disorder [episodic paroxysmal anxiety]; F19.10 Other psychoactive substance abuse, uncomplicated; F41.1 Generalized anxiety disorder; Z79.899 Other long term (current) drug therapy; Z88.2 Allergy status to sulfonamides; Z03.818 Encounter for observation for suspected exposure to other biological agents ruled out; Z87.891 Personal history of nicotine dependence
CPT/HCPCS: 10880